=== PATIENT | female | born 1995 | race Two or more races ===

== ENCOUNTER 2016-10-19 21:53 | Emergency (ER) | payer OTHER, SELFPAY ==
[~2016-10-19] VITALS: Ht 154.9 cm; Wt 71.7 kg
[~2016-10-19 21:53] MED LIST: PEPCID20 MG PO; REGLAN10 MG PO
[2016-10-19] MEDS ORDERED: AUBRA1 EACH PO (22:00)
[2016-10-19] MEDS ORDERED: Pantoprazole Inj IV ONE (22:15)
[2016-10-19] MEDS ORDERED: Mylanta II UD 30ml ORAL ONE (22:15)
[2016-10-19] MEDS ORDERED: Lidocaine 2% Visc 15ml soln ORAL ONE (22:15)
[2016-10-19] MEDS ORDERED: Morphine Sulfate 4mg/ml Inj IVP ONE (22:15)
--- NOTE | 2016-10-19 22:16 | Emergency Room Report ---
History of Present Illness General Chief Complaint: Abdominal Pain Source: Patient Present Illness HPI Is a 21-year-old female with no significant past medical history. She's been diagnosed with peptic ulcer disease in the past. Not on medication however. She presents with chief complaint of epigastric pain that goes to her back. Now and burning incision. 12/29. Occurred about an hour half ago. No relief with [place] and milk. She was scheduled for an endoscopy and colonoscopy but that had to be canceled because she was . She terminated the on October 10. A week later she had some lower caught her and pain and went to an ER. Urine was still positive. Ultrasound however was negative for IUP but only for a cyst. Patient denies any other complaint. Worse with eating and drinking. Allergies: Coded Allergies: No Known Allergies (Unverified , 10/19/16) Patient History Past Medical History: see triage record, old chart reviewed Past Surgical History: other Pertinent Family History: none Social History: Denies: smoking Last Menstrual Period: august 05 Now: No Immunizations: other Reviewed Nursing Documentation: PMH: Agreed, PSxH: Agreed Nursing Documentation-PMH Past Medical History: No History, Except For Hx Gastrointestinal Problems: Yes Review of Systems Eye: Denies: blurred vision, eye pain ENT: Denies: ear pain, nose congestion, throat swelling Respiratory: Denies: cough, shortness of breath Cardiovascular: Denies: chest pain, palpitations Gastrointestinal: Reports: abdominal pain, Denies: diarrhea, nausea, vomiting Musculoskeletal: Denies: back pain, joint pain Skin: Denies: rash Neurological: Denies: headache, numbness Endocrine: Denies: increased thirst, increased urine Hematologic/Lymphatic: Denies: easy bruising All Other Systems: negative except mentioned in HPI Physical Exam Vital Signs Date Time Temp Pulse Resp B/P Pulse Ox O2 Delivery O2 Flow Rate FiO2 10/19/16 21:55 97.5 86 16 133/63 97 Room Air vitals normal Sp02 EP Interpretation: reviewed, normal General Appearance: well appearing, no apparent distress, alert Head: normocephalic, atraumatic Eyes: bilateral eye EOMI, bilateral eye PERRL ENT: hearing grossly normal, normal pharynx Neck: full range of motion, supple, no meningismus Respiratory: chest non-tender, lungs clear, normal breath sounds Cardiovascular #1: regular rate, rhythm, no murmur Gastrointestinal: normal bowel sounds, no mass, no organomegaly, no bruit, non- distended, rebound - Epigastric tenderness Musculoskeletal: back normal, gait/station normal, normal range of motion Psychiatric: mood/affect normal Skin: warm/dry Medical Decision Making Diagnostic Impression: Primary Impression: Abdominal pain Qualified Codes: R10.13 - Epigastric pain Additional Impression: Retained products of conception following ER Course Present with epigastric pain. Most likely peptic ulcer disease. I bedside ultrasound negative for gallstone. She has no Sanchez sign. I see level is still positive an ultrasound showed a small retained product of conception. She has no severe bleeding or fever. Notice of infection. She may need another D&C if symptoms continue at this. This can be done as an outpatient. She's otherwise stable. Lab Results Impression labs unremarkable CT/MRI/US Diagnostic Results CT/MRI/US Diagnostic Results : Imaging Test Ordered: Pelvic ultrasound Impression Read by instrumentation engineer. Ovarian cyst. Small retained product of conception Last Vital Signs Date Time Temp Pulse Resp B/P Pulse Ox O2 Delivery O2 Flow Rate FiO2 10/19/16 21:55 97.5 86 16 133/63 97 Room Air Status: improved Disposition: HOME, SELF-CARE Condition: Stable Scripts Hydrocodone/Acetaminophen 5-325* (HYDROCODONE/ACETAMINOPHEN 5-325*) 1 Each Tablet 1 TAB ORAL Q6H Y for For Pain, #20 TAB 0 Refills Prov: JIM BRUNSON M.D. 10/20/16 Omeprazole Magnesium (PRILOSEC OTC) 20 Mg Tablet. 20 MG ORAL DAILY, #30 TAB Prov: JIM BRUNSON M.D. 10/20/16 Additional Instructions: Followup with your DrAnuradha in 7 days. Call [facility] regarding retained products of conception. Return if symptom worsen. JIM BRUNSON M.D. October 19, 2016 22:16
[2016-10-19 22:20] VITALS: BP 113/67
[2016-10-19 22:31] LABS: APPEARANCE,URINE CLEAR; KETONES,URINE NEGATIVE (NEGATIVE); LEUKOCYTE ESTERASE ,URINE 2+ (NEGATIVE); NITRITE,URINE NEGATIVE (NEGATIVE); PH,URINE 7 (4.5-8.0); PROTEIN,URINE NEGATIVE (NEGATIVE); UROBILINOGEN,URINE NORMAL MG/DL (0.0-1.0)
[2016-10-19 22:31] LABS: BASOPHILS % (AUTO) 0.3 % (0.0-2.0); EOSINOPHILS % (AUTO) 0.6 % (0.0-3.0); LYMPHOCYTES % (AUTO) 39.8 % (20.0-45.0); MEAN CORPUSCULAR HEMOGLOBIN 29.4 PG (27.0-31.0); MEAN CORPUSCULAR HGB CONC 35.4 G/DL (32.0-36.0); MEAN CORPUSCULAR VOLUME 83 FL (80-99); MEAN PLATELET VOLUME 11.1 FL (6.5-10.1); MONOCYTES % (AUTO) 4.9 % (1.0-10.0); NEUTROPHILS % (AUTO) 54.3 % (45.0-75.0); PLATELET COUNT 172 K/UL (150-450); RED CELL DISTRIBUTION WIDTH 12.1 % (11.6-14.8); WHITE BLOOD COUNT 6.2 K/UL (4.8-10.8)
[2016-10-19 22:48] LABS: ALANINE AMINOTRANSFERASE 36 U/L (3-33); ALBUMIN/GLOBULIN RATIO 1.3 (1.0-2.7); ANION GAP 17 (5-15); ASPARTATE AMINO TRANSFERASE 59 U/L (5-40); CALCIUM 9.6 mg/dL (8.6-10.2); CARBON DIOXIDE 22 mEQ/L (20-30); CHLORIDE 102 mEQ/L (98-107); CREATININE 0.9 mg/dL (0.5-0.9); GLOMERULAR FILTRATION RATE > 60 mL/min (>60); HEMOLYSIS 5; LIPASE 33 U/L (< 60); POTASSIUM 3.8 mEQ/L (3.4-4.9); SODIUM 141 mEQ/L (135-145); TOTAL PROTEIN 7.4 g/dL (6.6-8.7)
[2016-10-19 22:52] LABS: BACTERIA,URINE FEW /HPF; SQUAMOUS EPITHELIAL CELL,UR FEW /LPF (NONE/OCC)
[2016-10-20 00:20] VITALS: BP 118/64
[2016-10-20] MEDS ORDERED: HYDROCODON-ACE1 EA15 ORAL (00:45)
[2016-10-20] MEDS ORDERED: PRILOSEC OTC20 MG ORAL (00:45)
[2016-10-20 00:56] VITALS: BP 118/64
--- NOTE | 2016-10-20 16:30 | Diagnostic Imaging Report ---
Indication: Pelvic pain recent therapeutic Technique: Transabdominal and transvaginal images Comparison: None Findings: Uterus measures 7.3 cm length by 5.4 cm AP. 8 x 8 x 2 fluid collection is seen in the lower endometrium. Small amount of fluid is seen within the upper endometrium. The endometrium is not thickened. The right ovary measures 2.5 cm length. The left ovary measures 2.7 cm in length. No adnexal mass. No free cul-de-sac fluid. Impression: One or 2 small cystic spaces within the lower endometrium, nonspecific. Negative for adnexal mass
== END 2016-10-20 00:56 | disposition home or self-care (01) ==
LOC: EMR 22:08
DX: R10.13 Epigastric pain (principal); O03.4 Incomplete spontaneous abortion without complication; Z87.11 Personal history of peptic ulcer disease
CPT/HCPCS: 36415; 76830; 76856; 80053; 81003; 81025; 83690; 84702; 85025; 96360; 96361; 96374; 96375; 99284; C9113; J2270; J2405

== ENCOUNTER 2016-11-07 10:59 | Emergency (ER) | payer OTHER ==
[~2016-11-07] VITALS: Ht 154.9 cm; Wt 71.7 kg
[~2016-11-07 10:59] MED LIST changes: +AUBRA1 EACH PO; +HYDROCODON-ACE1 EA15 ORAL; +PRILOSEC OTC20 MG ORAL
[2016-11-07 11:13] VITALS: BP 121/83
[2016-11-07] MEDS ORDERED: Famotidine 20 MG/ 2ML VIAL IVP ONE (11:45)
[2016-11-07 12:00] LABS: BASOPHILS % (AUTO) 0.4 % (0.0-2.0); EOSINOPHILS % (AUTO) 0.4 % (0.0-3.0); LYMPHOCYTES % (AUTO) 27.6 % (20.0-45.0); MEAN CORPUSCULAR HEMOGLOBIN 27.5 PG (27.0-31.0); MEAN CORPUSCULAR HGB CONC 32.4 G/DL (32.0-36.0); MEAN CORPUSCULAR VOLUME 85 FL (80-99); MEAN PLATELET VOLUME 11.2 FL (6.5-10.1); MONOCYTES % (AUTO) 4.8 % (1.0-10.0); NEUTROPHILS % (AUTO) 66.7 % (45.0-75.0); PLATELET COUNT 146 K/UL (150-450); RED BLOOD COUNT 4.16 M/UL (4.20-5.40); RED CELL DISTRIBUTION WIDTH 12.3 % (11.6-14.8); WHITE BLOOD COUNT 5.6 K/UL (4.8-10.8)
[2016-11-07 12:09] LABS: APPEARANCE,URINE CLEAR; KETONES,URINE NEGATIVE (NEGATIVE); LEUKOCYTE ESTERASE ,URINE 1+ (NEGATIVE); NITRITE,URINE NEGATIVE (NEGATIVE); PH,URINE 7 (4.5-8.0); PROTEIN,URINE NEGATIVE (NEGATIVE); UROBILINOGEN,URINE NORMAL MG/DL (0.0-1.0)
[2016-11-07 12:15] LABS: ALANINE AMINOTRANSFERASE 6 U/L (3-33); ALBUMIN/GLOBULIN RATIO 1.3 (1.0-2.7); ANION GAP 16 (5-15); ASPARTATE AMINO TRANSFERASE 14 U/L (5-40); CARBON DIOXIDE 21 mEQ/L (20-30); CHLORIDE 101 mEQ/L (98-107); CREATININE 0.7 mg/dL (0.5-0.9); GLOMERULAR FILTRATION RATE > 60 mL/min (>60); HEMOLYSIS 4; LIPASE 22 U/L (< 60); POTASSIUM 4.1 mEQ/L (3.4-4.9); SODIUM 138 mEQ/L (135-145); TOTAL PROTEIN 6.9 g/dL (6.6-8.7)
[2016-11-07 12:16] LABS: BACTERIA,URINE FEW /HPF; SQUAMOUS EPITHELIAL CELL,UR FEW /LPF (NONE/OCC)
[2016-11-07] MEDS ORDERED: Morphine Sulfate 4mg/ml Inj ONE (13:24)
[2016-11-07] MEDS ORDERED: Morphine Sulfate 4mg/ml Inj IVP ONE ×2 (13:30→16:15)
[2016-11-07] MEDS ORDERED: Piperacillin/Tazobactam 3.375 GM in NS 110 ML IVPB ONE (14:30)
--- NOTE | 2016-11-07 14:46 | Diagnostic Imaging Report ---
Indications: Epigastric and right upper quadrant abdominal pain Technique: Transabdominal real-time grayscale and duplex Doppler imaging of the upper abdomen and retroperitoneum was performed. Findings: Comparison: None. Liver normal size and surface contour, parenchymal echogenicity. No focal lesions. Gallbladder incompletely filled with heterogeneously echogenic, partially shadowing material. Suggestion of mild diffuse mural thickening/edema to 8 mm. No adjacent fluid identified. Sonographic Sanchez sign reported as positive.. Bile ducts normal caliber. Common bile duct 3 mm. Pancreas visualized portions unremarkable. Spleen unremarkable. Right kidney unremarkable. Left kidney unremarkable. Abdominal aorta, intrahepatic portion of inferior vena cava patent, normal caliber. Duplex Doppler imaging demonstrates antegrade flow in splenic, portal, hepatic veins. No ascites. IMPRESSION: Findings compatible with acute calculous cholecystitis, gallbladder lumen diffusely stone-and sludge-filled. Remainder of exam unremarkable Critical results discussed with Dr. Dawkins, ER physician, by telephone at time of this dictation
[2016-11-07] MEDS ORDERED: Zosyn 3.375gm inj ONE (14:49)
--- NOTE | 2016-11-07 16:05 | Emergency Room Report ---
History of Present Illness General Chief Complaint: Abdominal Pain Source: Patient Present Illness HPI 21-year-old female presents to ED complaining of abdominal pain times one day. Pain is epigastric, sharp, 9/10, nonradiating. Denies nausea or vomiting. Denies fevers or chills. Patient was told she has history of ulcers has been here in the past. Patient states she was not too long ago but not at this time. Patient states she was discharged from here with medications for her ulcers but states it is not helping. No other aggravating or relieving factors. Denies any other associated symptom Allergies: Coded Allergies: No Known Allergies (Unverified , 10/19/16) Patient History Past Medical History: ulcer Past Surgical History: none Pertinent Family History: none Social History: Denies: alcohol use, drug use, smoking Last Menstrual Period: 3-17, d & c done last month Now: No Reviewed Nursing Documentation: PMH: Agreed, PSxH: Agreed Nursing Documentation-PMH Past Medical History: No History, Except For Hx Gastrointestinal Problems: Yes - ulcer Review of Systems All Other Systems: negative except mentioned in HPI Physical Exam Vital Signs Date Time Temp Pulse Resp B/P Pulse Ox O2 Delivery O2 Flow Rate FiO2 11/07/16 11:03 98.4 80 18 121/83 98 Room Air Sp02 EP Interpretation: reviewed, normal General Appearance: no apparent distress, alert, GCS 15, non-toxic Head: normocephalic Eyes: bilateral eye PERRL, bilateral eye normal inspection ENT: normal ENT inspection Neck: normal inspection Respiratory: chest non-tender, lungs clear, normal breath sounds, speaking full sentences Cardiovascular #1: regular rate, rhythm, no edema Gastrointestinal: tenderness - epigastric Rectal: deferred Genitourinary: no CVA tenderness Musculoskeletal: normal inspection Neurologic: alert, oriented x3, responsive, motor strength/tone normal, sensory intact, speech normal Psychiatric: normal inspection Skin: normal inspection Lymphatic: normal inspection Medical Decision Making Diagnostic Impression: Primary Impression: Cholecystitis ER Course Hospital Course 21-year-old F presents to ED with epigastric pain Differential diagnoses include: Appendicitis, cholecystitis, small bowel obstruction Clinical course Patient placed on stretcher. director of user experience. After initial history and physical I ordered labs, IV fluids, UA, pain medication and Abd US Labs - no leukocytosis noted, Hb/Hct stable. electrolytes ok. LFTs ok RUQ US - acute cholecystitis. Antibiotics given. because of insurance patient will be transferred I feel this is a highly complex case requiring extensive working including EKG/ Rhythm strip, Xray/CT/US, Blood/urine lab work, repeat exams while in ED, and administration of strong opiates/narcotics for pain control, admission to hospital or close patient follow up. Diagnosis - cholecystitis transferred in serious condition Labs Test 11/07/16 11:07 11/07/16 11:41 Urine Color Pale yellow Urine Appearance Clear Urine pH 7 (4.5-8.0) Urine Specific [place] 1.010 (1.005-1.035) Urine Protein Negative (NEGATIVE) Urine Glucose (UA) Negative (NEGATIVE) Urine Ketones Negative (NEGATIVE) Urine Occult Blood 2+ (NEGATIVE) Urine Nitrite Negative (NEGATIVE) Urine Bilirubin Negative (NEGATIVE) Urine Urobilinogen Normal MG/DL (0.0-1.0) Urine Leukocyte Esterase 1+ (NEGATIVE) Urine RBC 2-4 /HPF (0 - 2) Urine WBC 2-4 /HPF (0 - 2) Urine Squamous Epithelial Cells Few /LPF (NONE/OCC) Urine Bacteria Few /HPF (NONE) Urine HCG, Qualitative Negative White Blood Count 5.6 K/UL (4.8-10.8) Red Blood Count 4.16 M/UL (4.20-5.40) Hemoglobin 11.5 G/DL (12.0-16.0) Hematocrit 35.3 % (37.0-47.0) Mean Corpuscular Volume 85 FL (80-99) Mean Corpuscular Hemoglobin 27.5 PG (27.0-31.0) Mean Corpuscular Hemoglobin Concent 32.4 G/DL (32.0-36.0) Red Cell Distribution Width 12.3 % (11.6-14.8) Platelet Count 146 K/UL (150-450) Mean Platelet Volume 11.2 FL (6.5-10.1) Neutrophils (%) (Auto) 66.7 % (45.0-75.0) Lymphocytes (%) (Auto) 27.6 % (20.0-45.0) Monocytes (%) (Auto) 4.8 % (1.0-10.0) Eosinophils (%) (Auto) 0.4 % (0.0-3.0) Basophils (%) (Auto) 0.4 % (0.0-2.0) Sodium Level 138 mEQ/L (135-145) Potassium Level 4.1 mEQ/L (3.4-4.9) Chloride Level 101 mEQ/L (98-107) Carbon Dioxide Level 21 mEQ/L (20-30) Anion Gap 16 (5-15) Blood Urea Nitrogen 7 mg/dL (7-23) Creatinine 0.7 mg/dL (0.5-0.9) Estimat Glomerular Filtration Rate > 60 mL/min (>60) Glucose Level 85 mg/dL (74-106) Calcium Level 9.0 mg/dL (8.6-10.2) Total Bilirubin 0.3 mg/dL (0.0-1.2) Aspartate Amino Transf (AST/SGOT) 14 U/L (5-40) Alanine Aminotransferase (ALT/SGPT) 6 U/L (3-33) Alkaline Phosphatase 71 U/L (35-104) Total Protein 6.9 g/dL (6.6-8.7) Albumin 3.9 g/dL (3.5-5.2) Globulin 3.0 g/dL Albumin/Globulin Ratio 1.3 (1.0-2.7) Lipase 22 U/L (< 60) Human Chorionic Gonadotropin, Quant 8 mIU/mL CT/MRI/US Diagnostic Results CT/MRI/US Diagnostic Results : Imaging Test Ordered: Abd US Impression cholecystitis Last Vital Signs Date Time Temp Pulse Resp B/P Pulse Ox O2 Delivery O2 Flow Rate FiO2 11/07/16 11:13 98.4 18 121/83 98 Room Air 11/07/16 11:03 80 Status: improved Disposition: XFER T-[facility] Condition: Serious Referrals: [facility],REFERRING (PCP) TAN COLMENARES M.D. Nov 07, 2016 16:05
[2016-11-07] MEDS ORDERED: Ketorolac 30mg Inj IV ONE (16:15)
[2016-11-07 17:06] VITALS: BP 114/70
[2016-11-07 18:36] VITALS: BP 114/70
--- NOTE | 2016-11-08 | Consultation ---
DATE OF CONSULTATION: 11/07/2016 CONSULTING PHYSICIAN: Jeremiah Rush M.D. The patient is seen in the ER at the request of ER physician as well as insurance. HISTORY OF PRESENT ILLNESS: The patient is a 21-year-old female with history of abdominal pain. She came to the hospital with abdominal pain which is severe. There is no nausea or vomiting. She has been told that she had abscess in the past. PAST MEDICAL HISTORY: Otherwise unremarkable. PAST SURGICAL HISTORY: None SOCIAL HISTORY: There is no significant history of alcohol or tobacco usage. REVIEW OF SYSTEMS: Noncontributory . PHYSICAL EXAMINATION: GENERAL: Reveals a young female. HEENT: Unremarkable. CHEST: Shows clear breath sounds bilaterally. ABDOMEN: Soft. EXTREMITIES: There is no edema. NEUROLOGIC: Nonfocal. MUSCULOSKELETAL: There is moderate back discomfort. LABORATORY AND DIAGNOSTIC DATA: Normal CBC except for white count 11.5. Chemistry is normal. Urinalysis is negative. Imaging studies obtained today shows evidence of acute cholecystitis. IMPRESSION: Acute cholecystitis. DISCUSSION: The patient is stable for transfer to contracted hospital. I have contacted on-call patient case coordinator and I have discuss the care with them. The patient will be transferred to [facility]. Jeremiah Rush M.D. DR: Xiomara JOB#: [id number] CC:
== END 2016-11-07 18:36 | disposition short-term general hospital (02) ==
LOC: EMR 11:40
DX: K81.9 Cholecystitis, unspecified (principal); Z87.11 Personal history of peptic ulcer disease
CPT/HCPCS: 36415; 76700; 80053; 81003; 81025; 83690; 84702; 85025; 96360; 96374; 96375; 99285; J1885; J2270; J2405; J2543; S0028

== ENCOUNTER 2017-02-18 14:06 | Emergency (ER) | payer MEDICAID, OTHER ==
[~2017-02-18] VITALS: Ht 154.9 cm; Wt 65.3 kg
[~2017-02-18 14:06] MED LIST changes: +BACTRIM DS TAB1 EAC1 ORAL; +IBUPROFEN600 MG ORAL
[2017-02-18] MEDS ORDERED: LORATADINE10 M2 PO (14:44)
[2017-02-18] MEDS ORDERED: AUGMENTIN 875-1 EAC1 ORAL (14:44)
[2017-02-18] MEDS ORDERED: DEBROX15 M1 RIGHT EAR (14:44)
--- NOTE | 2017-02-18 14:44 | Emergency Room Report ---
History of Present Illness General Chief Complaint: Earache Source: Patient Present Illness HPI 21 y/o 5 week gestation female c/o bilateral ear pain x 1 week. States left ear pain and pressure for 1 week with radiation to post auricular region. No modifying factors and denies taking medications due to . States over past 2 days has had decreased hearing in right ear as well. Denies any current n/v/f/c/d, sore throat, sinus pain / pressure, allergies, abd pain, back pain, neck pain, photophobia, phonophobia, CP, SOB or headache. Allergies: Coded Allergies: No Known Allergies (Unverified , 10/19/16) Patient History Last Menstrual Period: 01/08/17 Now: Yes : 4 Para: 1 Immunizations: UTD Reviewed Nursing Documentation: PMH: Agreed, PSxH: Agreed Nursing Documentation-PMH Past Medical History: No History, Except For Hx Gastrointestinal Problems: Yes - peptic ulcer ; cholecystectomy in 2017 Review of Systems All Other Systems: negative except mentioned in HPI Physical Exam Vital Signs Date Time Temp Pulse Resp B/P (MAP) Pulse Ox O2 Delivery O2 Flow Rate FiO2 02/18/17 14:12 97.5 81 16 115/70 100 Room Air Sp02 EP Interpretation: reviewed, normal General Appearance: no apparent distress, alert, GCS 15, non-toxic Head: normocephalic, atraumatic Eyes: bilateral eye normal inspection ENT: hearing grossly normal, normal pharynx, no angioedema, normal voice, other - Left TM red, bulging with mucous effusion, right TM with impacted cerumen. Neck: full range of motion, supple/symm/no masses Respiratory: chest non-tender, lungs clear, normal breath sounds, speaking full sentences Cardiovascular #1: regular rate, rhythm, no edema Musculoskeletal: gait/station normal Neurologic: alert, oriented x3, responsive, motor strength/tone normal, sensory intact, speech normal Psychiatric: judgement/insight normal, memory normal, mood/affect normal, no suicidal/homicidal ideation Skin: normal color, no rash, warm/dry, well hydrated Lymphatic: no adenopathy Medical Decision Making PA Attestation Dr. Angulo is my supervising physician with whom patient management has been discussed with. Diagnostic Impression: Primary Impression: Otitis media of left ear Qualified Codes: H65.112 - Acute and subacute allergic otitis media (mucoid) ( sanguinous) (serous), left ear Additional Impressions: Less than 8 weeks gestation of Impacted cerumen of right ear ER Course Pt. presents to the ED c/o ear pain Ddx considered but are not limited to AOM, AOE, Coleman lucas, Sinusitis, Eustachian tube dysfunction, TM Perf, Mastoiditis Vital signs: are WNL, pt. is afebrile H&PE are most consistent with AOM left ear with impacted cerumen right ear ORDERS: none required at this time, the diagnosis is clinical ED INTERVENTIONS: none required at this time. DISCHARGE: At this time pt. is stable for d/c to home. Will provide printed patient care instructions, and any necessary prescriptions. Care plan and follow up instructions have been discussed with the patient prior to discharge. Last Vital Signs Date Time Temp Pulse Resp B/P (MAP) Pulse Ox O2 Delivery O2 Flow Rate FiO2 02/18/17 14:12 97.5 81 16 115/70 100 Room Air Status: unchanged Disposition: HOME, SELF-CARE Condition: Stable Scripts Carbamide Peroxide (DEBROX) 15 Ml Drops 10 DROP RIGHT EAR TWICE A DAY for 4 Days, ML 0 Refills Prov: ASHLEY LUCIANO.AAnuradha 02/18/17 Loratadine (LORATADINE) 10 Mg Tablet 10 MG PO DAILY for 14 Days, #14 TAB Prov: ASHLEY LUCIANO.A. 02/18/17 Amoxicillin/Potassium Clav 875-125* (AUGMENTIN 875-125 TABLET*) 1 Each Tablet 1 TAB ORAL TWICE A DAY for 10 Days, #20 TAB Prov: ASHLEY LUCIANO.A. 02/18/17 Patient Instructions: Otitis Media, Adult, [id number] ASHLEY LUCIANO Feb 18, 2017 14:44
[2017-02-18 15:09] VITALS: BP 118/64
[2017-02-18 15:10] VITALS: BP 118/64
== END 2017-02-18 15:13 | disposition home or self-care (01) ==
LOC: EMR 14:47
DX: O26.891 Other specified pregnancy related conditions, first trimester (principal); H66.92 Otitis media, unspecified, left ear; H61.21 Impacted cerumen, right ear; Z3A.01 Less than 8 weeks gestation of pregnancy
CPT/HCPCS: 99284

== ENCOUNTER 2017-02-22 12:35 | Emergency (ER) | payer MEDICAID, OTHER ==
[~2017-02-22] VITALS: Ht 154.9 cm; Wt 65.3 kg
[~2017-02-22 12:35] MED LIST changes: +AUGMENTIN 875-1 EAC1 ORAL; +DEBROX15 M1 RIGHT EAR; +LORATADINE10 M2 PO
[2017-02-22 14:11] VITALS: BP 95/53
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
[2017-02-22] MEDS ORDERED: LIDODERM700 M1 TOPIC (14:37)
[2017-02-22] MEDS ORDERED: TYLENOL EXTRA500 MG ORAL (14:37)
[2017-02-22 14:49] VITALS: BP 95/53
--- NOTE | 2017-02-22 14:51 | Diagnostic Imaging Report ---
Indication:Lower abdominal pelvic pain. Technique: Grayscale and duplex Doppler imaging of the pelvis performed utilizing a transabdominal scan and endovaginal scan. Comparison: None Findings: Exam shows evidence of an intrauterine with gestational sac and yolk sac. pole not seen. By mean sac diameter gestational age estimated at 4 weeks 4 days. A normal early intrauterine is still possible as the pole is usually visible by 5 weeks. Other possibility is an incomplete spontaneous . Suggest repeat ultrasound and serial quantitative beta-hCG correlation to assess doubling time. There is a 1.2 cm hypoechoic lesion in the right ovary likely a hemorrhagic cyst. Recommend followup. Otherwise, the ovaries appear normal bilaterally. Right ovary 2.7 x 3.4 x 3.2 CM. Left ovary 2.4 x 2.2 x 1.2 CM. Impression: Evidence of viability indeterminate early intrauterine versus spontaneous . Followup quantitative beta-hCG and ultrasound suggested. Hemorrhagic right ovarian cyst. Followup also recommended.
== END 2017-02-22 14:51 | disposition home or self-care (01) ==
LOC: EMR 13:00
DX: O26.891 Other specified pregnancy related conditions, first trimester (principal); M54.5 Low back pain; Y92.410 Unspecified street and highway as the place of occurrence of the external cause; V43.52XA Car driver injured in collision with other type car in traffic accident, initial encounter; O20.0 Threatened abortion; Z3A.01 Less than 8 weeks gestation of pregnancy
CPT/HCPCS: 36415; 76801; 76830; 81025; 84702; 99283

== ENCOUNTER 2017-05-24 20:58 | Emergency (ER) | payer MEDICAID ==
[~2017-05-24] VITALS: Ht 154.9 cm; Wt 61.7 kg
[~2017-05-24 20:58] MED LIST changes: +LIDODERM700 M1 TOPIC; +TYLENOL EXTRA500 MG ORAL
[2017-05-24] MEDS ORDERED: Acetaminophen 500mg (ES) tab ORAL ONE (22:15)
[2017-05-24 22:48] LABS: APPEARANCE,URINE CLEAR; BILIRUBIN, URINE NEGATIVE (NEGATIVE); GLUCOSE, URINE (UA) NEGATIVE (NEGATIVE); KETONES,URINE 1+ (NEGATIVE); LEUKOCYTE ESTERASE ,URINE 2+ (NEGATIVE); NITRITE,URINE NEGATIVE (NEGATIVE); PH,URINE 6 (4.5-8.0); PROTEIN,URINE NEGATIVE (NEGATIVE); UROBILINOGEN,URINE NORMAL MG/DL (0.0-1.0)
[2017-05-24 22:49] LABS: COLOR,URINE YELLOW
[2017-05-24] MEDS ORDERED: NITROFURANTOIN100 M2 ORAL (23:15)
--- NOTE | 2017-05-24 23:15 | Emergency Room Report ---
History of Present Illness General Chief Complaint: Back Pain-No Injury Source: Patient Present Illness HPI This is a 21-year-old female who is 4 para 1, A2, approximately 7 weeks . She presents with right lower quadrant pain. His been ongoing for last couple days. Hurts when she urinate. No fever or chills. No nausea no vomiting. No loss of appetite. Allergies: Coded Allergies: No Known Allergies (Unverified , 10/19/16) Patient History Past Medical History: see triage record, old chart reviewed Past Surgical History: none Pertinent Family History: none Social History: Denies: smoking Last Menstrual Period: Dec Now: Yes Immunizations: other Reviewed Nursing Documentation: PMH: Agreed, PSxH: Agreed Nursing Documentation-PMH Hx Gastrointestinal Problems: Yes - peptic ulcer ; cholecystectomy in 2017 Review of Systems Eye: Denies: eye pain, blurred vision ENT: Denies: ear pain, nose congestion, throat swelling Respiratory: Denies: cough, shortness of breath Cardiovascular: Denies: chest pain, palpitations Gastrointestinal: Denies: abdominal pain, diarrhea, nausea, vomiting Genitourinary: Reports: dysuria Musculoskeletal: Denies: back pain, joint pain Skin: Denies: rash Neurological: Denies: headache, numbness Endocrine: Denies: increased thirst, increased urine Hematologic/Lymphatic: Denies: easy bruising All Other Systems: negative except mentioned in HPI Physical Exam Vital Signs Date Time Temp Pulse Resp B/P (MAP) Pulse Ox O2 Delivery O2 Flow Rate FiO2 05/24/17 21:08 98.2 70 16 109/66 100 Room Air vitals normal Sp02 EP Interpretation: reviewed, normal General Appearance: well appearing, no apparent distress, alert Head: normocephalic, atraumatic Eyes: bilateral eye PERRL, bilateral eye EOMI ENT: hearing grossly normal, normal pharynx Neck: full range of motion, supple, no meningismus Respiratory: chest non-tender, lungs clear, normal breath sounds Cardiovascular #1: regular rate, rhythm, no murmur Gastrointestinal: normal bowel sounds, non tender, no mass, no organomegaly, no bruit, non-distended Musculoskeletal: back normal, gait/station normal, normal range of motion Psychiatric: mood/affect normal Skin: warm/dry Medical Decision Making Diagnostic Impression: Primary Impression: UTI (urinary tract infection) Qualified Codes: N30.00 - Acute cystitis without hematuria Additional Impression: Second trimester ER Course Patient presents with right flank/lower quadrant pain. Clinically doubt appendicitis. May be round ligament. May be a mild urinary tract infection. We'll go and put on antibiotics. My bedside ultrasound showed a live active IUP with good movement. Last Vital Signs Date Time Temp Pulse Resp B/P (MAP) Pulse Ox O2 Delivery O2 Flow Rate FiO2 05/24/17 21:08 98.2 70 16 109/66 100 Room Air Status: improved Disposition: HOME, SELF-CARE Condition: Stable Scripts Nitrofurantoin Monohyd/M-Cryst* (MACROBID 100 MG*) 100 Mg Capsule 100 MG ORAL EVERY 12 HOURS, #14 CAP Prov: JIM BRUNSON M.D. 05/24/17 Additional Instructions: Followup your Dr. in 3-7 days. Keep your appointment with the OB. Return worse. JIM BRUNSON M.D. May 24, 2017 23:15
[2017-05-24 23:48] VITALS: BP 121/82
[2017-05-24 23:49] VITALS: BP 109/66
== END 2017-05-24 23:50 | disposition home or self-care (01) ==
LOC: EMR 23:48
DX: O23.41 Unspecified infection of urinary tract in pregnancy, first trimester (principal); Z3A.01 Less than 8 weeks gestation of pregnancy
CPT/HCPCS: 81003; 99283

== ENCOUNTER 2017-11-01 03:39 | Emergency (ER) | payer MEDICAID ==
[~2017-11-01] VITALS: Ht 154.9 cm; Wt 75.3 kg
[~2017-11-01 03:39] MED LIST changes: +NITROFURANTOIN100 M2 ORAL
[2017-11-01 04:22] LABS: BILIRUBIN, URINE NEGATIVE (NEGATIVE); COLOR,URINE PALE YELLOW; GLUCOSE, URINE (UA) NEGATIVE (NEGATIVE); KETONES,URINE NEGATIVE (NEGATIVE); LEUKOCYTE ESTERASE ,URINE 3+ (NEGATIVE); NITRITE,URINE NEGATIVE (NEGATIVE); PH,URINE 7 (4.5-8.0); PROTEIN,URINE 2+ (NEGATIVE); UROBILINOGEN,URINE NORMAL MG/DL (0.0-1.0)
[2017-11-01 04:31] LABS: APPEARANCE,URINE CLOUDY
[2017-11-01 04:53] LABS: ANION GAP 8 mmol/L (5-15); BASOPHILS % (AUTO) 0.7 % (0.0-2.0); BLOOD UREA NITROGEN 10 mg/dL (7-18); CALCIUM 8.9 MG/DL (8.5-10.1); CARBON DIOXIDE 25 MMOL/L (21-32); CHLORIDE 107 MMOL/L (98-107); CREATININE 0.8 MG/DL (0.55-1.30); EOSINOPHILS % (AUTO) 3.4 % (0.0-3.0); HEMATOCRIT 37.8 % (37.0-47.0); HEMOGLOBIN 12.4 G/DL (12.0-16.0); LYMPHOCYTES % (AUTO) 23.7 % (20.0-45.0); MEAN CORPUSCULAR VOLUME 87 FL (80-99); MONOCYTES % (AUTO) 6.2 % (1.0-10.0); PLATELET COUNT 224 K/UL (150-450); POTASSIUM 3.6 MMOL/L (3.5-5.1); RED BLOOD COUNT 4.35 M/UL (4.20-5.40); RED CELL DISTRIBUTION WIDTH 13.3 % (11.6-14.8); SODIUM 140 MMOL/L (136-145); WHITE BLOOD COUNT 8.3 K/UL (4.8-10.8)
[2017-11-01 04:57] LABS: ALANINE AMINOTRANSFERASE 34 U/L (12-78); ALBUMIN 2.7 G/DL (3.4-5.0); ALBUMIN/GLOBULIN RATIO 0.6 (1.0-2.7); ALKALINE PHOSPHATASE 140 U/L (46-116); ASPARTATE AMINO TRANSFERASE 30 U/L (15-37); BILIRUBIN,TOTAL 0.3 MG/DL (0.2-1.0)
[2017-11-01 05:00] VITALS: BP 125/85
[2017-11-01] MEDS ORDERED: TYLENOL EXTRA500 MG ORAL (05:47)
[2017-11-01 05:57] VITALS: BP 125/85
--- NOTE | 2017-11-01 10:52 | Diagnostic Imaging Report ---
Indication: Abdominal pain, recent delivery Technique: Transabdominal and transvaginal images Comparison: 10/19/2016 Findings: Uterus measures 12.4 cm in length by 9 cm AP. Endometrium measures 7 mm thick. Trace fluid is seen within the endometrium. No myometrial abnormality. Left ovary measures 5.3 cm length. Right ovary could not be demonstrated. No free cul-de-sac fluid Impression: Enlarged uterus Trace fluid in the endometrium, nonspecific. No definite evidence of retained products of conception Nonvisualized right ovary. No gross adnexal mass
--- NOTE | 2017-11-02 07:29 | Emergency Room Report ---
History of Present Illness General Chief Complaint: Abdominal Pain Source: Patient Present Illness HPI 22-year-old female presents to the ED complaining of lower abdominal pain. States it started approximately one hour ago. Localized to right inguinal area. Sharp, 9 out of 10, nonradiating. States she she is approximately 6 days . Had normal vaginal delivery. No complications during . Delivered at [facility]. Patient states she had similar pain in her . Her PMD states it was "round ligament pain". Denies fevers or chills. Denies nausea or vomiting. Denies any vaginal bleeding or discharge. No other aggravating or relieving factors. Denies any other associated symptoms Allergies: Coded Allergies: No Known Allergies (Unverified , 10/19/16) Patient History Past Medical History: GERD Past Surgical History: Pertinent Family History: none Social History: Denies: smoking, alcohol use, drug use Last Menstrual Period: 6 days post Now: No Immunizations: UTD Reviewed Nursing Documentation: PMH: Agreed; PSxH: Agreed Nursing Documentation-PMH Hx Gastrointestinal Problems: Yes - peptic ulcer ; cholecystectomy in 2017 Review of Systems All Other Systems: negative except mentioned in HPI Physical Exam Vital Signs Date Time Temp Pulse Resp B/P (MAP) Pulse Ox O2 Delivery O2 Flow Rate FiO2 11/01/17 03:41 98.5 75 18 120/81 95 Room Air 98.4 Sp02 EP Interpretation: reviewed, normal General Appearance: no apparent distress, alert, GCS 15, non-toxic Head: normocephalic, atraumatic Eyes: bilateral eye normal inspection, bilateral eye PERRL ENT: hearing grossly normal, normal pharynx, no angioedema, normal voice Neck: full range of motion, supple/symm/no masses Respiratory: chest non-tender, lungs clear, normal breath sounds, speaking full sentences Cardiovascular #1: regular rate, rhythm, no edema Cardiovascular #2: 2+ carotid (R), 2+ carotid (L), 2+ radial (R), 2+ radial (L) , 2+ dorsalis pedis (R), 2+ dorsalis pedis (L) Gastrointestinal: normal bowel sounds, soft, non-distended, no guarding, no rebound, tenderness - suprapubic Rectal: deferred Genitourinary: normal inspection, no CVA tenderness Musculoskeletal: back normal, gait/station normal, normal range of motion, non- tender Neurologic: alert, oriented x3, responsive, motor strength/tone normal, sensory intact, speech normal Psychiatric: judgement/insight normal, memory normal, mood/affect normal, no suicidal/homicidal ideation Reflexes: 3+ bicep (R), 3+ bicep (L), 3+ tricep (R), 3+ tricep (L), 3+ knee (R) , 3+ knee (L) Skin: normal color, no rash, warm/dry, well hydrated Lymphatic: no adenopathy Medical Decision Making Diagnostic Impression: Primary Impression: Pelvic pain ER Course Hospital Course 22-year-old F presents to ED with lower abd pain. s/p vaginal delivery 6 days ago Differential diagnosis includes-appendicitis, retained products of conception, ovarian cyst Clinical course Patient placed on stretcher. After initial history and physical I ordered labs , IV fluids, pain medications and US Labs - no leukocytosis, electrolytes ok, LFTs normal US shows enlarged uterus, consistent with . No acute process I discussed findings with the patient. My suspicion for appendicitis is low however I did discuss the option of the CT with the patient. Patient states that she would prefer to follow-up with her SPACE TECHNOLOGIST this week. However will return to ED if symptoms recur or worsen I feel this is a highly complex case requiring extensive working including EKG/ Rhythm strip, Xray/CT/US, Blood/urine lab work, repeat exams while in ED, and administration of strong opiates/narcotics for pain control, admission to hospital or close patient follow up. Diagnosis - pelvic pain Stable and discharged to home with Rx Tylenol. Followup with PMD/OBGYN. Return to ED if symptoms recur or worsen Labs Test 11/01/17 04:14 11/01/17 04:20 Urine Color Pale yellow Urine Appearance Cloudy Urine pH 7 (4.5-8.0) Urine Specific [place] 1.015 (1.005-1.035) Urine Protein 2+ (NEGATIVE) Urine Glucose (UA) Negative (NEGATIVE) Urine Ketones Negative (NEGATIVE) Urine Occult Blood 5+ (NEGATIVE) Urine Nitrite Negative (NEGATIVE) Urine Bilirubin Negative (NEGATIVE) Urine Urobilinogen Normal MG/DL (0.0-1.0) Urine Leukocyte Esterase 3+ (NEGATIVE) Urine RBC Tntc /HPF (0 - 2) Urine WBC Tntc /HPF (0 - 2) Urine Squamous Epithelial Cells Few /LPF (NONE/OCC) Urine Bacteria Few /HPF (NONE) White Blood Count 8.3 K/UL (4.8-10.8) Red Blood Count 4.35 M/UL (4.20-5.40) Hemoglobin 12.4 G/DL (12.0-16.0) Hematocrit 37.8 % (37.0-47.0) Mean Corpuscular Volume 87 FL (80-99) Mean Corpuscular Hemoglobin 28.5 PG (27.0-31.0) Mean Corpuscular Hemoglobin Concent 32.9 G/DL (32.0-36.0) Red Cell Distribution Width 13.3 % (11.6-14.8) Platelet Count 224 K/UL (150-450) Mean Platelet Volume 9.5 FL (6.5-10.1) Neutrophils (%) (Auto) 66.0 % (45.0-75.0) Lymphocytes (%) (Auto) 23.7 % (20.0-45.0) Monocytes (%) (Auto) 6.2 % (1.0-10.0) Eosinophils (%) (Auto) 3.4 % (0.0-3.0) Basophils (%) (Auto) 0.7 % (0.0-2.0) Sodium Level 140 MMOL/L (136-145) Potassium Level 3.6 MMOL/L (3.5-5.1) Chloride Level 107 MMOL/L (98-107) Carbon Dioxide Level 25 MMOL/L (21-32) Anion Gap 8 mmol/L (5-15) Blood Urea Nitrogen 10 mg/dL (7-18) Creatinine 0.8 MG/DL (0.55-1.30) Estimat Glomerular Filtration Rate > 60 mL/min (>60) Glucose Level 97 MG/DL (74-106) Calcium Level 8.9 MG/DL (8.5-10.1) Total Bilirubin 0.3 MG/DL (0.2-1.0) Aspartate Amino Transf (AST/SGOT) 30 U/L (15-37) Alanine Aminotransferase (ALT/SGPT) 34 U/L (12-78) Alkaline Phosphatase 140 U/L (46-116) Total Protein 6.9 G/DL (6.4-8.2) Albumin 2.7 G/DL (3.4-5.0) Globulin 4.2 g/dL Albumin/Globulin Ratio 0.6 (1.0-2.7) Lipase 103 U/L (73-393) Human Chorionic Gonadotropin, Quant 75 mIU/mL (1-6) CT/MRI/US Diagnostic Results CT/MRI/US Diagnostic Results : Imaging Test Ordered: Pelvic US Impression Impression: Enlarged uterus Trace fluid in the endometrium, nonspecific. No definite evidence of retained products of conception Nonvisualized right ovary. No gross adnexal mass Last Vital Signs Date Time Temp Pulse Resp B/P (MAP) Pulse Ox O2 Delivery O2 Flow Rate FiO2 11/01/17 05:57 98.5 79 18 125/85 96 Room Air 98.5 Status: improved Disposition: HOME, SELF-CARE Condition: Stable Scripts Acetaminophen* (TYLENOL EXTRA STRENGTH*) 500 Mg Tablet 500 MG ORAL Q8H PRN for Prn Headache/Temp > 101, #30 TAB 0 Refills Prov: Mirza Dawkins MD 11/01/17 Patient Instructions: Care After Vaginal Delivery Mirza Dawkins MD Nov 02, 2017 07:29
== END 2017-11-01 05:57 | disposition home or self-care (01) ==
LOC: EMR 04:11
DX: O90.89 Other complications of the puerperium, not elsewhere classified (principal); R10.2 Pelvic and perineal pain; K21.9 Gastro-esophageal reflux disease without esophagitis; Z87.11 Personal history of peptic ulcer disease; Z90.49 Acquired absence of other specified parts of digestive tract
CPT/HCPCS: 36415; 76830; 76856; 80053; 81003; 83690; 84702; 85025; 87086; 99284

== ENCOUNTER 2017-12-10 16:09 | Emergency (ER) | payer MEDICAID ==
[~2017-12-10] VITALS: Ht 154.9 cm; Wt 66.7 kg
[2017-12-10 16:28] VITALS: BP 106/72
--- NOTE | 2017-12-10 16:42 | Emergency Room Report ---
History of Present Illness General Chief Complaint: Female Urogenital Problems Source: Patient Present Illness HPI 22-year-old female patient presents ER complaining of dysuria for the past few days. Reports that she recently had unprotected sex with a boy that is not her significant other that recently tested positive for chlamydia. Patient denies blood or new vaginal discharge. Denies foul smelling odor. Denies flank pain, vomiting, fever. Reports some suprapubic discomfort during this time. Patient' s boyfriend currently being seen in the ER for evaluation as well, boyfriend asx. Reports she recently gave one month ago. Denies other acute symptoms at this time. Allergies: Coded Allergies: No Known Allergies (Unverified , 10/19/16) Patient History Past Medical History: see triage record Last Menstrual Period: gave 1 month ago Now: No Reviewed Nursing Documentation: PMH: Agreed; PSxH: Agreed Nursing Documentation-PM Past Medical History: No History, Except For Hx Gastrointestinal Problems: Yes - peptic ulcer ; cholecystectomy in 2017 Review of Systems All Other Systems: negative except mentioned in HPI Physical Exam Vital Signs Date Time Temp Pulse Resp B/P (MAP) Pulse Ox O2 Delivery O2 Flow Rate FiO2 12/10/17 16:16 98.3 70 18 106/72 98 Room Air 98.2 Sp02 EP Interpretation: reviewed, normal General Appearance: well appearing, no apparent distress, alert, GCS 15, non- toxic Head: normocephalic, atraumatic Eyes: bilateral eye normal inspection, bilateral eye PERRL ENT: hearing grossly normal, normal pharynx, no angioedema, normal voice, uvula midline, moist mucus membranes Neck: full range of motion Respiratory: lungs clear, normal breath sounds, no rhonchi, no respiratory distress, no accessory muscle use, no wheezing, speaking full sentences Cardiovascular #1: regular rate, rhythm, no edema Gastrointestinal: non tender, soft, no mass, non-distended, no guarding, no rebound, other - negative Rovsing, negative obturator Genitourinary: no CVA tenderness, ext genitalia/vag normal Musculoskeletal: back normal, digits/nails normal, gait/station normal, normal range of motion, non-tender Neurologic: alert, oriented x3, responsive, motor strength/tone normal, sensory intact Skin: no rash - no vesicles, no herpetic lesions no blistering erythema or edema Medical Decision Making PA Attestation Dr. Greenberg is my supervising Physician whom patient management has been discussed with. Diagnostic Impression: Primary Impression: Encounter for screening examination for sexually transmitted disease Additional Impression: Dysuria ER Course Pt presents to ED c/o painful urinary symptoms. DDX considered but are not limited to cystitis, pyelonephritis, STI, vaginitis, , gonorrhea, chlamydia. VITAL SIGNS are WNL, patient is afebrile. Ordered UA, urine , and medications. ER COURSE UA results unremarkable, no nitrites, few bacteria and WBCs, do NOT indicate UTI , does not require will treatment with abx at this time. Urine negative. Informed patient of results. Patient has concern for STI, no provide treatment for STI to cover gonorrhea and chlamydia. Provided with Rocephin and Azithromycin. Followup with STI clinic for testing and treatment. Need evaluation for HIV/AIDs , syphilis, herpes and other STI infections at that time. External vaginal skin visualized with female nurse mattress specialist, no herpetic lesions, no chancre or chancroid or swollen lymph nodes visible. Alert all sexual partners for need for testing. Wear condoms during sex. Avoid sexual activity for the next 2 weeks. Drink plenty of fluids. Patient is resting comfortably in chair, nontoxic appearing, in no acute distress. patient OK for discharge to home. DISCHARGE -Rx provided for Pyridium further dysuria symptoms. Side effects may turn urine orange. Patient is stable for discharge. Patient resting comfortably, in no acute distress, nontoxic appearing, talking without difficulty. Will provide with patient care instructions and any necessary prescriptions. Patient understands and agrees to treatment plan. Patient encouraged to drink plenty of fluids. Patient to take medication as instructed. Care plan and follow-up instructions provided. Patient questions asked and answered. Reports understanding and agreement to treatment plan. Patient instructed to follow-up with primary care provider in 3 - 5 days. ER precautions given. Patient instructed to return to ER immediately for any new or worsening of symptoms. Including but not limited to fever, abdominal pain , intractable vomiting. - Please note that this Emergency Department Report was dictated using [employer] compressor operator technology software, occasionally this can lead to erroneous entry secondary to interpretation by the dictation equipment. Labs Test 12/10/17 16:22 Urine Color Pale yellow Urine Appearance Clear Urine pH 6 (4.5-8.0) Urine Specific [place] 1.010 (1.005-1.035) Urine Protein Negative (NEGATIVE) Urine Glucose (UA) Negative (NEGATIVE) Urine Ketones Negative (NEGATIVE) Urine Occult Blood Negative (NEGATIVE) Urine Nitrite Negative (NEGATIVE) Urine Bilirubin Negative (NEGATIVE) Urine Urobilinogen Normal MG/DL (0.0-1.0) Urine Leukocyte Esterase 2+ (NEGATIVE) Urine RBC 0-2 /HPF (0 - 2) Urine WBC 2-4 /HPF (0 - 2) Urine Squamous Epithelial Cells Few /LPF (NONE/OCC) Urine Bacteria Few /HPF (NONE) Urine HCG, Qualitative Negative (NEGATIVE) Last Vital Signs Date Time Temp Pulse Resp B/P (MAP) Pulse Ox O2 Delivery O2 Flow Rate FiO2 12/10/17 16:28 98.2 18 106/72 98 Room Air 98.2 12/10/17 16:16 70 Disposition: HOME, SELF-CARE Condition: Stable Scripts Phenazopyridine Hcl* (PYRIDIUM*) 100 Mg Tablet 100 MG ORAL THREE TIMES A DAY for 3 Days, #9 TAB Prov: Mathew Haider 12/10/17 [facility]errals: [facility],REFERRING (PCP) Patient Instructions: Dysuria, Sexually Transmitted Disease, [id number] Additional Instructions: Followup with primary care provider and followup with STI clinic for further evaluation and treatment. Needs testing for gonorrhea, chlamydia, HIV, syphilis and others as needed. Alert sexual partners for need for evaluation and treatment. Wear condoms during sex. Avoid sexual activity for 2 weeks. Drink plenty of fluids. Medication as side of turning urine orange. Take medications as instructed. Patient questions asked and answered. ER precautions given, patient instructed to return to ER immediately for any new or worsening of symptoms. Mathew Haider Dec 10, 2017 16:42
[2017-12-10] MEDS ORDERED: Azithromycin 250mg tab ORAL ONE (16:45)
[2017-12-10] MEDS ORDERED: Lidocaine 1% MPF 10mg/ml 5ml INJ ONE (16:45)
[2017-12-10 17:05] LABS: APPEARANCE,URINE CLEAR; BILIRUBIN, URINE NEGATIVE (NEGATIVE); COLOR,URINE PALE YELLOW; GLUCOSE, URINE (UA) NEGATIVE (NEGATIVE); KETONES,URINE NEGATIVE (NEGATIVE); LEUKOCYTE ESTERASE ,URINE 2+ (NEGATIVE); NITRITE,URINE NEGATIVE (NEGATIVE); PH,URINE 6 (4.5-8.0); PROTEIN,URINE NEGATIVE (NEGATIVE); UROBILINOGEN,URINE NORMAL MG/DL (0.0-1.0)
[2017-12-10] MEDS ORDERED: PHENAZOPYRIDIN100 MG ORAL (17:51)
[2017-12-10 18:00] VITALS: BP 109/65
== END 2017-12-10 18:00 | disposition home or self-care (01) ==
LOC: EMR 16:35
DX: R30.0 Dysuria (principal); Z11.3 Encounter for screening for infections with a predominantly sexual mode of transmission
CPT/HCPCS: 81003; 81025; 96372; 99283; J0696; Q0144

== ENCOUNTER 2018-01-10 17:59 | Emergency (ER) | payer MEDICAID ==
[~2018-01-10] VITALS: Ht 154.9 cm; Wt 65.8 kg
[~2018-01-10 17:59] MED LIST changes: +PHENAZOPYRIDIN100 MG ORAL
--- NOTE | 2018-01-10 18:29 | Emergency Room Report ---
History of Present Illness General Chief Complaint: Female Urogenital Problems Source: Patient, Medical Record Present Illness HPI 22-year-old female presents with vaginal discharge and pelvic pain for one day. Patient states that she had infidelity with another man in November 2017 and was later reported from [facility] that this gentleman had given them Chlamydia recently. Patient states that she was evaluated for chlamydia 3 weeks ago between her and her spouse states that her test was negative. Patient states that today she has thick white discharge with diffuse pelvic pain and moderate to severe discomfort in the vaginal area. Patient states she does have some itching but is more concerned about this pain that is present in the pelvic region. The pain does not lateralize and is generalized. Patient has no modifying factors. Patient denies any nausea, vomiting, diarrhea, dysuria, urinary frequency, or rashes. Allergies: Coded Allergies: No Known Allergies (Unverified , 10/19/16) Patient History Past Medical History: see triage record Last Menstrual Period: 12/23/17 Reviewed Nursing Documentation: PMH: Agreed; PSxH: Agreed Nursing Documentation-PMH Past Medical History: No History, Except For Hx Gastrointestinal Problems: Yes - peptic ulcer ; cholecystectomy in 2017 Review of Systems All Other Systems: negative except mentioned in HPI Physical Exam Vital Signs Date Time Temp Pulse Resp B/P (MAP) Pulse Ox O2 Delivery O2 Flow Rate FiO2 01/10/18 18:02 98.3 78 18 121/79 98 Room Air 98.2 Sp02 EP Interpretation: reviewed, normal General Appearance: no apparent distress, alert, GCS 15, non-toxic Head: normocephalic, atraumatic Eyes: bilateral eye normal inspection, bilateral eye PERRL ENT: hearing grossly normal, normal pharynx, no angioedema, normal voice Neck: full range of motion, supple/symm/no masses Respiratory: chest non-tender, lungs clear, normal breath sounds, speaking full sentences Cardiovascular #1: regular rate, rhythm, no edema Gastrointestinal: soft, non-distended, tenderness - suprapubic Genitourinary: no CVA tenderness, deferred Musculoskeletal: gait/station normal Neurologic: alert, oriented x3, responsive, motor strength/tone normal, sensory intact, speech normal Skin: normal color, no rash, warm/dry, well hydrated Medical Decision Making PA Attestation Dr. Knight my supervising physician with whom patient management has been discussed with. Diagnostic Impression: Primary Impression: Acute cystitis Qualified Codes: N30.00 - Acute cystitis without hematuria Additional Impression: Vaginal discharge ER Course Pt. presents to the ED c/o pelvic discomfort with vaginal discharge Ddx considered but are not limited to GC, Chlamydia, Trich, UTI, torsion, candiasis, BV, Vital signs: are WNL, pt. is afebrile H&PE are most consistent with Acute cystitis with vaginal discharge with possible exposure to STI. ORDERS: UA+ Leuks, GC/Chlamydia by EARNESTINE pending, HCG neg. ED INTERVENTIONS: 250mg Rocephin IM, 1G Azitrhomycin DISCHARGE: At this time pt. is stable for d/c to home. Will provide printed patient care instructions, and any necessary prescriptions. Care plan and follow up instructions have been discussed with the patient prior to discharge. Laboratory Tests Test 01/10/18 18:19 Urine Color Pale yellow Urine Appearance Slightly cloudy Urine pH 9 (4.5-8.0) Urine Specific [place] 1.015 (1.005-1.035) Urine Protein Negative (NEGATIVE) Urine Glucose (UA) Negative (NEGATIVE) Urine Ketones Negative (NEGATIVE) Urine Blood Negative (NEGATIVE) Urine Nitrite Negative (NEGATIVE) Urine Bilirubin Negative (NEGATIVE) Urine Urobilinogen Normal MG/DL (0.0-1.0) Urine Leukocyte Esterase 2+ (NEGATIVE) H Urine RBC 0-2 /HPF (0 - 2) Urine WBC 2-4 /HPF (0 - 2) Urine Squamous Epithelial Cells Few /LPF (NONE/OCC) Urine Amorphous Sediment Few /LPF (NONE) H Urine Bacteria Few /HPF (NONE) Urine HCG, Qualitative Negative (NEGATIVE) Chlamydia trachomatis RNA Pending Neisseria gonorrhoeae RNA Pending Last Vital Signs Date Time Temp Pulse Resp B/P (MAP) Pulse Ox O2 Delivery O2 Flow Rate FiO2 01/10/18 18:02 98.3 78 18 121/79 98 Room Air 98.2 Status: unchanged Disposition: HOME, SELF-CARE Condition: Stable Scripts Fluconazole (FLUCONAZOLE) 100 Mg Tablet 150 MG ORAL DAILY, #2 TAB 0 Refills Take 1 tab today. Repeate in 1 week as needed Prov: Germania Duque 01/10/18 Nitrofurantoin Monohyd/M-Cryst* (MACROBID 100 MG*) 100 Mg Capsule 100 MG ORAL EVERY 12 HOURS for 7 Days, #14 CAP Prov: Germania Duque 01/10/18 Patient Instructions: Vaginitis, Urinary Tract Infection Additional Instructions: Take medication as directed. Patient advised to follow up with community clinic for formal STD screening. In general, watch out for any genital itching, burning , sores, or discharge. But be aware that many STIs do not cause any symptoms. The best way to know for sure if you have an STI is to be screened. If you have an STI, you will need treatment. The right treatment will depend on the type of STI you have. If you do have an infection, you might need to tell the people you could have infected. There is no surefire way to prevent all STIs, but there are things you can do to reduce your chances of catching one. The most important thing you can do is to wear a condom every time you have sex. Both male and female condoms can protect against STIs. But be aware that male condoms made out of "natural materials," such as sheep intestine, do NOT protect against STIs. If you are 26 years old or younger, you can get a vaccine to protect against HPV, the virus that causes genital warts. If you do not have hepatitis A or B and have not already gotten the vaccine for hepatitis A or B, you can get those vaccines, too. If your partner has herpes, he or she can reduce the chances of infecting you by taking a medicine called valacyclovir. If you are at very high risk of catching HIV, you might be able to take a pill every day to reduce the chances that you will get HIV. This is an option only for very few at-risk people. Germania Duque Jan 10, 2018 18:29
[2018-01-10] MEDS ORDERED: Lidocaine 1% MPF 10mg/ml 5ml INJ ONE (18:30)
[2018-01-10] MEDS ORDERED: Azithromycin 250mg tab ORAL ONE (18:30)
[2018-01-10 18:51] LABS: APPEARANCE,URINE SLIGHTLY CLOUDY; BILIRUBIN, URINE NEGATIVE (NEGATIVE); COLOR,URINE PALE YELLOW; GLUCOSE, URINE (UA) NEGATIVE (NEGATIVE); KETONES,URINE NEGATIVE (NEGATIVE); LEUKOCYTE ESTERASE ,URINE 2+ (NEGATIVE); NITRITE,URINE NEGATIVE (NEGATIVE); PH,URINE 9 (4.5-8.0); PROTEIN,URINE NEGATIVE (NEGATIVE); UROBILINOGEN,URINE NORMAL MG/DL (0.0-1.0)
[2018-01-10 18:58] VITALS: BP 121/79
[2018-01-10] MEDS ORDERED: NITROFURANTOIN100 M2 ORAL (19:06)
[2018-01-10] MEDS ORDERED: FLUCONAZOLE100 MG ORAL (19:06)
[2018-01-10 19:34] VITALS: BP 121/79
== END 2018-01-10 19:30 | disposition home or self-care (01) ==
LOC: EMR 18:38
DX: N30.00 Acute cystitis without hematuria (principal); N89.8 Other specified noninflammatory disorders of vagina; Z90.49 Acquired absence of other specified parts of digestive tract; Z87.11 Personal history of peptic ulcer disease
CPT/HCPCS: 81003; 81025; 87491; 87590; 96372; 99283; J0696; Q0144

== ENCOUNTER 2018-03-01 11:41 | Emergency (ER) | payer MEDICAID ==
[~2018-03-01] VITALS: Ht 154.9 cm; Wt 59.0 kg
[~2018-03-01 11:41] MED LIST changes: +FLUCONAZOLE100 MG ORAL
[2018-03-01 11:48] VITALS: BP 123/83
[2018-03-01] MEDS ORDERED: Isovue-300 100ml vial INJ PRN (12:15)
[2018-03-01] MEDS ORDERED: Morphine Sulfate 4mg/ml Inj (IV USE ONLY) IVP ONE ×2 (12:15→15:00)
[2018-03-01 12:21] LABS: APPEARANCE,URINE SLIGHTLY CLOUDY; BILIRUBIN, URINE NEGATIVE (NEGATIVE); COLOR,URINE YELLOW; GLUCOSE, URINE (UA) NEGATIVE (NEGATIVE); KETONES,URINE NEGATIVE (NEGATIVE); LEUKOCYTE ESTERASE ,URINE 1+ (NEGATIVE); NITRITE,URINE NEGATIVE (NEGATIVE); PH,URINE 7 (4.5-8.0); PROTEIN,URINE 1+ (NEGATIVE); UROBILINOGEN,URINE NORMAL MG/DL (0.0-1.0)
[2018-03-01 12:33] LABS: BASOPHILS % (AUTO) 0.5 % (0.0-2.0); EOSINOPHILS % (AUTO) 0.3 % (0.0-3.0); HEMATOCRIT 41.8 % (37.0-47.0); HEMOGLOBIN 13.8 G/DL (12.0-16.0); LYMPHOCYTES % (AUTO) 28.9 % (20.0-45.0); MEAN CORPUSCULAR VOLUME 85 FL (80-99); MONOCYTES % (AUTO) 5.6 % (1.0-10.0); NEUTROPHILS % (AUTO) 64.7 % (45.0-75.0); PLATELET COUNT 200 K/UL (150-450); RED BLOOD COUNT 4.94 M/UL (4.20-5.40); RED CELL DISTRIBUTION WIDTH 10.9 % (11.6-14.8); WHITE BLOOD COUNT 6.6 K/UL (4.8-10.8)
[2018-03-01 12:47] LABS: ANION GAP 9 mmol/L (5-15); BLOOD UREA NITROGEN 8 mg/dL (7-18); CALCIUM 9.1 MG/DL (8.5-10.1); CARBON DIOXIDE 27 MMOL/L (21-32); CHLORIDE 104 MMOL/L (98-107); CREATININE 0.7 MG/DL (0.55-1.30); POTASSIUM 3.6 MMOL/L (3.5-5.1); SODIUM 140 MMOL/L (136-145)
[2018-03-01 12:52] LABS: ALANINE AMINOTRANSFERASE 20 U/L (12-78); ALBUMIN 3.9 G/DL (3.4-5.0); ALBUMIN/GLOBULIN RATIO 1.1 (1.0-2.7); ALKALINE PHOSPHATASE 98 U/L (46-116); ASPARTATE AMINO TRANSFERASE 12 U/L (15-37); BILIRUBIN,TOTAL 0.4 MG/DL (0.2-1.0)
--- NOTE | 2018-03-01 14:04 | Diagnostic Imaging Report ---
Indication:Lower abdominal and pelvic pain Technique: Grayscale and duplex Doppler imaging of the pelvis performed utilizing a transabdominal and endovaginal scan. Comparison: None Findings: The size, contour, and configuration of the uterus is within normal limits. The endometrium is uniformly echogenic and normal in thickness measuring 1 to 2 mm. Uterus measures 8.7 x 8.6 x 4.9 cm. The ovaries appear normal bilaterally with good dopplerable blood flow. There is no significant free fluid identified. Left ovary 2.3 x 1.9 x 1.4 cm. Right ovary 2.9 x 2.9 x 1.7 cm. IMPRESSION: Negative pelvic ultrasound. No acute findings.
--- NOTE | 2018-03-01 14:36 | Diagnostic Imaging Report ---
Indication: Abdominal pain Technique: Continuous helical transaxial imaging of the abdomen and pelvis was obtained from the lung bases to the pubic symphysis during intravenous contrast administration. Coronal 2-D reformats were also obtained. Study obtained in a Siemens sensation [address] Automatic Exposure Control was utilized. Total Dose length Product (DLP): 803.[address] Dose Index Volume (CTDIvol): 15.47 mGy Comparison: None Findings: The lung bases are clear. Cholecystectomy noted. Pancreas is unremarkable. There is slightly increased vascularity in the adnexa bilaterally and the both ovarian veins are somewhat prominent. Consider pelvic congestion syndrome. No hydronephrosis seen. There is a 1 cm cyst in the left kidney. No definite renal stones identified. No ascites or free air identified. The appendix is normal. Small umbilical hernia containing fat demonstrated. IMPRESSION: Slightly increased vascularity of the pelvis. This could very well be normal. Consider pelvic congestion syndrome under the appropriate clinical circumstances. Left renal cyst. Status post cholecystectomy. Tiny umbilical hernia containing fat Negative exam otherwise The CT scanner at [facility] is accredited by the [employer] and the scans are performed using dose optimization techniques as appropriate to a performed exam including Automatic Exposure control.
[2018-03-01] MEDS ORDERED: NORCO 5-325 TA1 EACH ORAL (14:59)
[2018-03-01] MEDS ORDERED: RANITIDINE HCL150 MG ORAL (14:59)
[2018-03-01] MEDS ORDERED: DICYCLOMINE HCL10 MG PO (14:59)
[2018-03-01] MEDS ORDERED: AMOXICILLIN500 MG ORAL (14:59)
[2018-03-01] MEDS ORDERED: Ketorolac 30mg Inj IV ONE (15:00)
[2018-03-01] MEDS ORDERED: COLACE100 MG ORAL (15:08)
[2018-03-01] MEDS ORDERED: MAGNESIUM CITR296 M1 PO (15:08)
[2018-03-01 15:34] VITALS: BP 98/64
--- NOTE | 2018-03-03 23:16 | Emergency Room Report ---
History of Present Illness General Chief Complaint: Abdominal Pain Source: Patient Present Illness HPI 22-year-old female presents ED complaining of abdominal pain. Started one week ago. Getting progressively worse. Pain is sharp, 10 out of 10, nonradiating. Notes nausea and vomiting. Also complaining of left ear pain. Denies fevers or chills. Denies sore throat or cough. Denies dysuria or hematuria. No other aggravating relieving factors. Denies any other associated symptoms Allergies: Coded Allergies: No Known Allergies (Unverified , 10/19/16) Patient History Past Medical History: GERD Past Surgical History: noy Pertinent Family History: none Social History: Denies: smoking, alcohol use, drug use Last Menstrual Period: 12/23/17 Now: No Immunizations: UTD Reviewed Nursing Documentation: PMH: Agreed; PSxH: Agreed Nursing Documentation-PMH Past Medical History: No History, Except For Hx Gastrointestinal Problems: Yes - peptic ulcer ; cholecystectomy in 2017 Review of Systems All Other Systems: negative except mentioned in HPI Physical Exam Vital Signs Date Time Temp Pulse Resp B/P (MAP) Pulse Ox O2 Delivery O2 Flow Rate FiO2 03/01/18 11:46 98.3 82 18 123/83 96 Room Air 98.2 Sp02 EP Interpretation: reviewed, normal General Appearance: no apparent distress, alert, GCS 15, non-toxic Head: normocephalic, atraumatic Eyes: bilateral eye normal inspection, bilateral eye PERRL ENT: hearing grossly normal, normal pharynx, no angioedema, normal voice, other - L TM poor light reflex Neck: full range of motion, supple/symm/no masses Respiratory: chest non-tender, lungs clear, normal breath sounds, speaking full sentences Cardiovascular #1: regular rate, rhythm, no edema Cardiovascular #2: 2+ carotid (R), 2+ carotid (L), 2+ radial (R), 2+ radial (L) , 2+ dorsalis pedis (R), 2+ dorsalis pedis (L) Gastrointestinal: normal bowel sounds, soft, non-distended, no rebound, guarding, tenderness Rectal: deferred Genitourinary: normal inspection, no CVA tenderness Musculoskeletal: back normal, gait/station normal, normal range of motion, non- tender Neurologic: alert, oriented x3, responsive, motor strength/tone normal, sensory intact, speech normal Psychiatric: judgement/insight normal, memory normal, mood/affect normal, no suicidal/homicidal ideation Reflexes: 3+ bicep (R), 3+ bicep (L), 3+ tricep (R), 3+ tricep (L), 3+ knee (R) , 3+ knee (L) Skin: normal color, no rash, warm/dry, well hydrated Lymphatic: no adenopathy Medical Decision Making Diagnostic Impression: Primary Impression: Constipation Qualified Codes: K59.00 - Constipation, unspecified Additional Impressions: Otitis media Qualified Codes: H66.90 - Otitis media, unspecified, unspecified ear Abdominal pain Qualified Codes: R10.9 - Unspecified abdominal pain ER Course Hospital Course 22-year-old F presents to ED with abdominal pain, L ear pain Differential diagnosis includes-appendicitis, cholecystitis, small bowel obstruction, gastritis, Clinical course Patient placed on stretcher. After initial history and physical I ordered labs , IV fluids, pain medications and CT A/P Labs - no leukocytosis, electrolytes ok, LFTs normal, UA unremarkable CT A/P - copious stool noted , no acute process Discussed findings with patient. Station states that she has difficulty with bowel movements and often strains. We'll provide stool softeners. We'll provide antibiotics for her otitis media Safe for discharge close outpatient follow-up I feel this is a highly complex case requiring extensive working including EKG/ Rhythm strip, Xray/CT/US, Blood/urine lab work, repeat exams while in ED, and administration of strong opiates/narcotics for pain control, admission to hospital or close patient follow up. Diagnosis - constipation, otitis media, abdominal pain Stable and discharged to home with Rx Mag citrate, Colace, amoxicillin, zantac, bentyl. instructed on high-fiber diet. Followup with PMD. Return to ED if symptoms recur or worsen Labs Test 03/01/18 12:05 03/01/18 12:22 Urine Color Yellow Urine Appearance Slightly cloudy Urine pH 7 (4.5-8.0) Urine Specific [place] 1.020 (1.005-1.035) Urine Protein 1+ (NEGATIVE) Urine Glucose (UA) Negative (NEGATIVE) Urine Ketones Negative (NEGATIVE) Urine Blood 1+ (NEGATIVE) Urine Nitrite Negative (NEGATIVE) Urine Bilirubin Negative (NEGATIVE) Urine Urobilinogen Normal MG/DL (0.0-1.0) Urine Leukocyte Esterase 1+ (NEGATIVE) Urine RBC 0-2 /HPF (0 - 2) Urine WBC 2-4 /HPF (0 - 2) Urine Squamous Epithelial Cells Moderate /LPF (NONE/OCC) Urine Bacteria Few /HPF (NONE) Urine Mucus Few /LPF (NONE/OCC) Urine HCG, Qualitative Negative (NEGATIVE) White Blood Count 6.6 K/UL (4.8-10.8) Red Blood Count 4.94 M/UL (4.20-5.40) Hemoglobin 13.8 G/DL (12.0-16.0) Hematocrit 41.8 % (37.0-47.0) Mean Corpuscular Volume 85 FL (80-99) Mean Corpuscular Hemoglobin 27.9 PG (27.0-31.0) Mean Corpuscular Hemoglobin Concent 32.9 G/DL (32.0-36.0) Red Cell Distribution Width 10.9 % (11.6-14.8) Platelet Count 200 K/UL (150-450) Mean Platelet Volume 11.9 FL (6.5-10.1) Neutrophils (%) (Auto) 64.7 % (45.0-75.0) Lymphocytes (%) (Auto) 28.9 % (20.0-45.0) Monocytes (%) (Auto) 5.6 % (1.0-10.0) Eosinophils (%) (Auto) 0.3 % (0.0-3.0) Basophils (%) (Auto) 0.5 % (0.0-2.0) Sodium Level 140 MMOL/L (136-145) Potassium Level 3.6 MMOL/L (3.5-5.1) Chloride Level 104 MMOL/L (98-107) Carbon Dioxide Level 27 MMOL/L (21-32) Anion Gap 9 mmol/L (5-15) Blood Urea Nitrogen 8 mg/dL (7-18) Creatinine 0.7 MG/DL (0.55-1.30) Estimat Glomerular Filtration Rate > 60 mL/min (>60) Glucose Level 94 MG/DL (74-106) Calcium Level 9.1 MG/DL (8.5-10.1) Total Bilirubin 0.4 MG/DL (0.2-1.0) Aspartate Amino Transf (AST/SGOT) 12 U/L (15-37) Alanine Aminotransferase (ALT/SGPT) 20 U/L (12-78) Alkaline Phosphatase 98 U/L (46-116) Total Protein 7.5 G/DL (6.4-8.2) Albumin 3.9 G/DL (3.4-5.0) Globulin 3.6 g/dL Albumin/Globulin Ratio 1.1 (1.0-2.7) Lipase 95 U/L (73-393) CT/MRI/US Diagnostic Results CT/MRI/US Diagnostic Results : Imaging Test Ordered: CT A/P Impression no acute process. fecal impaction noted Last Vital Signs Date Time Temp Pulse Resp B/P (MAP) Pulse Ox O2 Delivery O2 Flow Rate FiO2 03/01/18 15:34 98.3 63 18 98/64 100 Room Air 208.8 Status: improved Disposition: HOME, SELF-CARE Condition: Stable Scripts Magnesium Citrate (MAGNESIUM CITRATE) 296 Ml Solution 150 ML PO DAILY for 2 Days, UNIT Prov: Mirza Dawkins MD 03/01/18 Docusate Sodium* (COLACE*) 100 Mg Capsule 100 MG ORAL THREE TIMES A DAY, #30 CAP Prov: Mirza Dawkins MD 03/01/18 Ranitidine Hcl* (ZANTAC*) 150 Mg Tablet 150 MG ORAL TWICE A DAY, #30 TAB Prov: Mirza Dawkins MD 03/01/18 Amoxicillin* (AMOXIL*) 500 Mg Capsule 500 MG ORAL THREE TIMES A DAY for 10 Days, #30 CAP Prov: Mirza Dawkins MD 03/01/18 Dicyclomine Hcl* (DICYCLOMINE HCL*) 10 Mg Capsule 10 MG PO QID for 5 Days, CAP Prov: Mirza Dawkins MD 03/01/18 Patient Instructions: Abdominal Pain, Adult Mirza Dawkins MD Mar 03, 2018 23:16
== END 2018-03-01 15:35 | disposition home or self-care (01) ==
LOC: EMR 12:13
DX: K59.00 Constipation, unspecified (principal); H66.92 Otitis media, unspecified, left ear; R10.9 Unspecified abdominal pain
CPT/HCPCS: 36415; 74177; 76856; 80053; 81003; 81025; 83690; 85025; 96361; 96374; 96375; 96376; 99284; J1885; J2270; Q9967; S0028

== ENCOUNTER 2018-07-23 12:42 | Emergency (ER) | payer MEDICAID ==
[~2018-07-23] VITALS: Ht 154.9 cm; Wt 65.8 kg
[~2018-07-23 12:42] MED LIST changes: +AMOXICILLIN500 MG ORAL; +COLACE100 MG ORAL; +DICYCLOMINE HCL10 MG PO; +MAGNESIUM CITR296 M1 PO; +NORCO 5-325 TA1 EACH ORAL; +RANITIDINE HCL150 MG ORAL
[2018-07-23 12:54] VITALS: BP 124/72
[2018-07-23] MEDS ORDERED: NKM (12:58)
[2018-07-23 13:19] LABS: APPEARANCE,URINE CLEAR; BILIRUBIN, URINE NEGATIVE (NEGATIVE); COLOR,URINE PALE YELLOW; GLUCOSE, URINE (UA) NEGATIVE (NEGATIVE); KETONES,URINE NEGATIVE (NEGATIVE); LEUKOCYTE ESTERASE ,URINE NEGATIVE (NEGATIVE); NITRITE,URINE NEGATIVE (NEGATIVE); PH,URINE 7 (4.5-8.0); PROTEIN,URINE NEGATIVE (NEGATIVE); UROBILINOGEN,URINE NORMAL MG/DL (0.0-1.0)
--- NOTE | 2018-07-23 13:29 | NUR ---
ED Nurse Note: Pt AAOx4.ambulated in to ER due to cough with yellow phlegm and chills since 07/21/18. Also c/o left pink eye with itching, no discharge since this morning. Also c/o pain while urinating with itching since yesterday
--- NOTE | 2018-07-23 14:25 | Emergency Room Report ---
History of Present Illness General Chief Complaint: Upper Respiratory Illness Source: Patient Present Illness HPI 22-year-old female presents to the emergency department complaining of erythema and sticky discharge in the left eye times one day. Patient also reports upper respiratory symptoms such as cough, nasal congestion and hoarseness of her voice 1 week. Patient denies fevers and chills. Patient also reports dysuria/ itching with urination. Patient states she has had recent unprotected intercourse for which she took plan B for earlier this month. Patient denies abdominal pain or tenderness at this time. She denies swollen tender lymph nodes, joint pain, genital lesions. She states that she had recent antibiotic use after having tooth pulled two and a half weeks ago. Denies eye pain, loss of vision, contact lens or glasses use. pt. denies increased lacrimation. Allergies: Coded Allergies: No Known Allergies (Unverified , 07/23/18) Patient History Past Medical History: see triage record Past Surgical History: none Pertinent Family History: none Last Menstrual Period: Now: No Reviewed Nursing Documentation: PMH: Agreed; PSxH: Agreed Nursing Documentation-PMH Past Medical History: No History, Except For Hx Gastrointestinal Problems: Yes - peptic ulcer ; cholecystectomy in 2017 Review of Systems All Other Systems: negative except mentioned in HPI Physical Exam Vital Signs Date Time Temp Pulse Resp B/P (MAP) Pulse Ox O2 Delivery O2 Flow Rate FiO2 07/23/18 12:54 98.4 84 16 124/72 97 Room Air Sp02 EP Interpretation: reviewed, normal General Appearance: no apparent distress, alert, GCS 15, non-toxic Head: normocephalic, atraumatic Eyes: bilateral eye normal inspection, bilateral eye PERRL, bilateral eye other - Left eye d/c, and erythema as well. ENT: hearing grossly normal, normal voice, TMs + canals normal, moist mucus membranes, pharyngeal erythema Neck: full range of motion Respiratory: chest non-tender, lungs clear, normal breath sounds, speaking full sentences Cardiovascular #1: regular rate, rhythm, no edema Gastrointestinal: normal bowel sounds, non tender, soft Genitourinary: normal inspection, no CVA tenderness Musculoskeletal: back normal, gait/station normal, normal range of motion, non- tender Neurologic: alert, oriented x3, responsive, motor strength/tone normal, sensory intact, speech normal, grossly normal Psychiatric: judgement/insight normal Skin: normal color, no rash, warm/dry, well hydrated Lymphatic: no adenopathy Medical Decision Making PA Attestation Dr. Peters is my supervising Physician whom patient management has been discussed with. Diagnostic Impression: Primary Impression: Acute bacterial conjunctivitis of left eye Additional Impressions: URI, acute Yeast vaginitis ER Course 22-year-old female presents to the emergency department complaining of erythema and sticky discharge in the left eye times one day. Patient also reports upper respiratory symptoms such as cough, nasal congestion and hoarseness of her voice 1 week. Patient denies fevers and chills. Patient also reports dysuria/ itching with urination. Patient states she has had recent unprotected intercourse for which she took plan B for earlier this month. Patient denies abdominal pain or tenderness at this time. She denies swollen tender lymph nodes, joint pain, genital lesions. She states that she had recent antibiotic use after having tooth pulled two and a half weeks ago. Denies eye pain, loss of vision, contact lens or glasses use. pt. denies increased lacrimation. Ddx considered but are not limited to: corneal abrasion, acute glaucoma, globe rupture, FB, Corneal Ulcer, conjunctivitis. Iridis, orbital cellulitis,keratitis , sinusitis, lito's syndrome, URI, UTI, vaginitis. Vital signs: are WNL, pt. is afebrile H&PE are most consistent with: bacterial conjunctivitis, and yeast vaginitis. ORDERS: -UA: No evidence of infection -Hcg: Negative ED INTERVENTIONS: none at this time. DISCHARGE: At this time pt. is stable for d/c to home. Will provide printed patient care instructions, and any necessary prescriptions. Care plan and follow up instructions have been discussed with the patient prior to discharge. Labs Test 07/23/18 13:07 Urine Color Pale yellow Urine Appearance Clear Urine pH 7 (4.5-8.0) Urine Specific [place] 1.015 (1.005-1.035) Urine Protein Negative (NEGATIVE) Urine Glucose (UA) Negative (NEGATIVE) Urine Ketones Negative (NEGATIVE) Urine Blood Negative (NEGATIVE) Urine Nitrite Negative (NEGATIVE) Urine Bilirubin Negative (NEGATIVE) Urine Urobilinogen Normal MG/DL (0.0-1.0) Urine Leukocyte Esterase Negative (NEGATIVE) Urine HCG, Qualitative Negative (NEGATIVE) Last Vital Signs Date Time Temp Pulse Resp B/P (MAP) Pulse Ox O2 Delivery O2 Flow Rate FiO2 07/23/18 12:54 84 16 Room Air 07/23/18 12:54 98.4 124/72 97 Disposition: HOME, SELF-CARE Condition: Stable Scripts Codeine/Promethazine Hcl* (PROMETHAZINE-CODEINE SYRUP*) 118 Ml Syrup 5 ML ORAL Q6H PRN for For Cough, #120 ML 0 Refills Prov: Vijaya Palumbo 07/23/18 Fluconazole (FLUCONAZOLE) 100 Mg Tablet 100 MG ORAL DAILY for 4 Days, #4 TAB 0 Refills Prov: Vijaya Palumbo 07/23/18 Ofloxacin (OCUFLOX) 5 Ml Drops 1 DROP OP TID, #5 ML Prov: Vijaya Palumbo 07/23/18 [facility],REFERRING (PCP) Patient Instructions: Bacterial Conjunctivitis, [id number], Vaginitis, Easy- to-Read Additional Instructions: Take medications as directed. Follow up with a Primary Care Provider in 3-5 days, even if your symptoms have resolved. --Please review list of primary care clinics, if you do not already have a primary care provider Return sooner to ED if new symptoms occur, or current symptoms become worse. Do not drink alcohol, drive, or operate heavy machinery while taking Cough Syrup as this may cause drowsiness. - Please note that this Emergency Department Report was dictated using [employer] conduit layer technology software, occasionally this can lead to erroneous entry secondary to interpretation by the dictation equipment. Vijaya Palumbo Jul 23, 2018 14:25
[2018-07-23] MEDS ORDERED: OCUFLOX5 ML OP (14:27)
[2018-07-23] MEDS ORDERED: FLUCONAZOLE100 MG ORAL (14:27)
[2018-07-23] MEDS ORDERED: PROMETHAZINE-C118 M1 ORAL (14:27)
[2018-07-23 14:45] VITALS: BP 124/72
--- NOTE | 2018-07-23 14:45 | NUR ---
ER DISCHARGE NOTE: Patient is cleared to be discharged per ERMD, pt is aox4, on room air, with stable vital signs. pt was given dc and prescription instructions, pt was able to verbalize understanding, pt id band removed. pt is able to ambulate with steady gait. pt took all belongings.
== END 2018-07-23 14:56 | disposition home or self-care (01) ==
LOC: EMR 13:30
DX: H10.32 Unspecified acute conjunctivitis, left eye (principal); B96.89 Other specified bacterial agents as the cause of diseases classified elsewhere; J06.9 Acute upper respiratory infection, unspecified; B37.3 Candidiasis of vulva and vagina; Z87.11 Personal history of peptic ulcer disease; Z90.49 Acquired absence of other specified parts of digestive tract
CPT/HCPCS: 81003; 81025; 99283

== ENCOUNTER 2018-08-20 10:22 | Emergency (ER) | payer MEDICAID, OTHER ==
[~2018-08-20] VITALS: Ht 154.9 cm; Wt 65.8 kg
[~2018-08-20 10:22] MED LIST changes: +NKM; +OCUFLOX5 ML OP; +PROMETHAZINE-C118 M1 ORAL
--- NOTE | 2018-08-20 11:12 | Emergency Room Report ---
History of Present Illness General Chief Complaint: Female Urogenital Problems Source: Patient Present Illness HPI Patient is a 22-year-old female presented after increased right-sided buttock pain. Patient reports of increased buttock pain and swelling for the past 3 days. She reports having noticed a small painful area and has had similar symptoms in the past. Patient a prior history of abscess. She denies any fever. Patient denies any prior history of diabetes or immunocompromise. Allergies: Coded Allergies: No Known Allergies (Unverified , 07/23/18) Patient History Past Medical History: see triage record Now: No Reviewed Nursing Documentation: PMH: Agreed; PSxH: Agreed Nursing Documentation-PMH Hx Gastrointestinal Problems: Yes - peptic ulcer ; cholecystectomy in 2017 Review of Systems All Other Systems: negative except mentioned in HPI Physical Exam Vital Signs Date Time Temp Pulse Resp B/P (MAP) Pulse Ox O2 Delivery O2 Flow Rate FiO2 08/20/18 10:35 98.4 93 19 113/78 97 Room Air General Appearance: well appearing, no apparent distress, alert, GCS 15 Head: normocephalic, atraumatic ENT: hearing grossly normal, normal voice Neck: full range of motion, supple Respiratory: chest non-tender, lungs clear, normal breath sounds, no respiratory distress, speaking full sentences Cardiovascular #1: normal inspection, regular rate, rhythm Gastrointestinal: normal inspection, non tender, soft Musculoskeletal: no calf tenderness Neurologic: normal gait Psychiatric: mood/affect normal Skin: no rash, other - right buttock with tender indurated area about 2cm Procedures Incision and Drainage Incision and Drainage : Consent: Emergent Site: buttock Blade Size: 11 I & D Procedure: betadine prep, sterile drapes applied Wound's Depth, Shape: superficial Wound Length (cm): 1 Anesthesia: Lidocaine w/ Epi Volume Anesthetic (ccs): 3 Patient Tolerated: Well Complications: None Progress minimal purulent drainage Medical Decision Making Diagnostic Impression: Primary Impression: Abscess ER Course Patient presented for skin rash. Differential diagnosis included was not limited to abscess, cellulitis, folliculitis, necrotizing fascitis. Patient has a benign exam and does not appear to require any further imaging or laboratory testing at this time. Patient was advised risk benefits and alternatives of incision and drainage including but not limited to bleeding infection and inability to drain purulent material. Patient's wound was incised and drained after anesthetic. The patient is advised to follow up with primary care doctor in 1-2 days. Patient is advised to return if any worsening condition or if any changes in status that are concerning. This report is dictated with [employer] vehicle and equipment cleaner software which may occasionally lead to discrepancies related to use of this software. Last Vital Signs Date Time Temp Pulse Resp B/P (MAP) Pulse Ox O2 Delivery O2 Flow Rate FiO2 08/20/18 10:35 98.4 93 19 113/78 97 Room Air Status: improved Disposition: HOME, SELF-CARE Condition: Stable Scripts Doxycycline Monohydrate* (DOXYCYCLINE MONOHYDRATE*) 100 Mg Capsule 100 MG ORAL Q12H, #14 CAP 0 Refills Prov: Humphrey Angulo MD 08/20/18 Cephalexin* (KEFLEX*) 500 Mg Capsule 500 MG ORAL EVERY 6 HOURS, #28 CAP Prov: Humphrey Angulo MD 08/20/18 Referrals: [facility],REFERRING (PCP) Humphrey Angulo MD Aug 20, 2018 11:12
[2018-08-20] MEDS ORDERED: Lidocaine 1% 10mg/ml/Epi 0.005mg/ml 30ml vial INJ ONE ×2 (11:15)
--- NOTE | 2018-08-20 11:15 | NUR ---
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 pt states noticed painful spot on right buttocks started on or monday. pt states has increased inpain over weekend and that she noted drainage on clothing this am. dried blood noted at site. pt with increased pain with md palpation. pt desires to have I/D done by md, aware pus may/may not drain. supplies placed at bs for
[2018-08-20] MEDS ORDERED: CEPHALEXIN500 MG ORAL (11:18)
[2018-08-20] MEDS ORDERED: DOXYCYCLINE MO100 MG ORAL (11:18)
--- NOTE | 2018-08-20 11:53 | NUR ---
ED Nurse Note:pt tolerates I/D well. DSD placed afterwards. awaiting dc aci
--- NOTE | 2018-08-20 11:54 | NUR ---
ED Nurse Note: urine is in lab awaiting order for ua
[2018-08-20 12:30] VITALS: BP 110/72
--- NOTE | 2018-08-20 12:30 | NUR ---
ED Nurse Note: pt given dc aci and script by clare nichole rn.
[2018-08-20 14:27] VITALS: BP 110/72
== END 2018-08-20 12:30 | disposition home or self-care (01) ==
LOC: EMR 10:55
DX: L02.31 Cutaneous abscess of buttock (principal)
CPT/HCPCS: 10060; 96374; 99283; Z7502

== ENCOUNTER 2019-04-30 15:49 | Emergency (ER) | payer MEDICAID ==
[~2019-04-30] VITALS: Ht 154.9 cm; Wt 52.6 kg
[~2019-04-30 15:49] MED LIST changes: +CEPHALEXIN500 M1 ORAL; +CEPHALEXIN500 MG ORAL; +DOXYCYCLINE MO100 MG ORAL; +ZOFRAN4 M1 ORAL
[2019-04-30 16:03] VITALS: BP 126/75
--- NOTE | 2019-04-30 16:03 | NUR ---
ED Nurse Note: Patient arrived to ED from home by car complaining of 10/10 upper abdominal pain that started 2 days ago. Patient states she had her gallbladder taken out a few years ago. Pain is in the upper abdomen and feels like burning. Patient feels weak and dizzy. Patient is AxO x 4, no s/s of acute distress. Patient on the child monitor, bed in lowest position, VSS. Blood and urine sent to lab.
[2019-04-30] MEDS ORDERED: Dicyclomine HCl 10mg/5ml oral soln ORAL ONE (16:15)
[2019-04-30] MEDS ORDERED: Ketorolac 30mg Inj IV ONE (16:15)
[2019-04-30] MEDS ORDERED: Mylanta II UD 30ml ORAL ONE (16:15)
[2019-04-30] MEDS ORDERED: Lidocaine 2% Visc 15ml soln ORAL ONE (16:15)
--- NOTE | 2019-04-30 16:20 | Emergency Room Report ---
History of Present Illness General Chief Complaint: Abdominal Pain Source: Patient Present Illness HPI Disclaimer: Please note that this report is being documented using [employer] technology. This can lead to erroneous entry secondary to incorrect interpretation by the dictating instrument. HPI: 23-year-old female with history of peptic ulcer disease, status post cholecystectomy, recent urinary tract infection presents for evaluation of abdominal pain and lightheadedness. Symptoms have been present for approximately 1 day. She noted lightheadedness and a burning epigastric pain that radiated up into her chest and throat earlier today. Does not recall any change in her diet. Was diagnosed with peptic ulcer disease many years ago but does not take medications. She was seen in the emergency department last week diagnosed urinary tract infection started on Keflex which she states she has been compliant and still taking. Still complains of mild dysuria though reports it significantly improved after starting antibiotics. Denies vomiting but reports nausea. Denies diarrhea or hematochezia, or melena. Denies chest pain, palpitations, shortness of breath, cough. PMH: Peptic ulcer disease, PSH: Cholecystectomy Allergies: None reported Social Hx: Social alcohol use Allergies: Coded Allergies: No Known Allergies (Unverified , 07/23/18) Patient History Last Menstrual Period: 04/03/19 Now: No Nursing Documentation-PMH Hx Gastrointestinal Problems: Yes - peptic ulcer ; cholecystectomy in 2017 Review of Systems All Other Systems: negative except mentioned in HPI Physical Exam Vital Signs Date Time Temp Pulse Resp B/P (MAP) Pulse Ox O2 Delivery O2 Flow Rate FiO2 04/30/19 15:55 98.4 72 18 126/75 (92) 97 Room Air General: Awake and alert, no acute distress HEENT: NC/AT. EOMI. Cardiovascular: RRR. S1 and S2 normal. No murmur appreciated Resp: Normal work of breathing. No cough, wheezing or crackles appreciated Abdomen: Abdomen is soft, nondistended. Tender palpation in the epigastrium. Mild tenderness in the right upper quadrant in the left upper quadrant. Mild tenderness to suprapubic region. No significant tenderness in the lower quadrants. No rebound. No mass appreciated. Skin: Intact. No abrasions, laceration or rash over the exposed skin MSK: Normal tone and bulk. Moving all extremities. No obvious deformity. Neuro: Awake and alert. Mentating appropriately. Medical Decision Making Diagnostic Impression: Primary Impression: Abdominal pain Additional Impression: Reflux gastritis ER Course 23-year-old female presents for evaluation of abdominal pain and lightheadedness starting today. She is well-appearing and arrives with stable vital signs. Differential includes was not limited to dyspepsia, PUD, gastroenteritis, viral syndrome, pancreatitis, hepatitis, choledocholithiasis, appendicitis, persistent urinary tract infection, nephrolithiasis, pyelonephritis. Of these, either peptic ulcer disease or pancreatitis would fit the patient's clinical picture though we will start a broad metabolic infectious work-up. Will treat with IV antacids, IV fluids, antiemetics and give a GI cocktail. Patient does not appear to have a surgical abdomen at this point. Will defer imaging until she is reevaluated. Laboratory Tests Test 04/30/19 16:20 White Blood Count 8.0 K/UL (4.8-10.8) Red Blood Count 4.76 M/UL (4.20-5.40) Hemoglobin 12.6 G/DL (12.0-16.0) Hematocrit 37.5 % (37.0-47.0) Mean Corpuscular Volume 79 FL (80-99) L Mean Corpuscular Hemoglobin 26.5 PG (27.0-31.0) L Mean Corpuscular Hemoglobin Concent 33.6 G/DL (32.0-36.0) Red Cell Distribution Width 11.3 % (11.6-14.8) L Platelet Count 185 K/UL (150-450) Mean Platelet Volume 9.8 FL (6.5-10.1) Neutrophils (%) (Auto) 64.4 % (45.0-75.0) Lymphocytes (%) (Auto) 28.4 % (20.0-45.0) Monocytes (%) (Auto) 5.9 % (1.0-10.0) Eosinophils (%) (Auto) 0.8 % (0.0-3.0) Basophils (%) (Auto) 0.5 % (0.0-2.0) Urine Color Pale yellow Urine Appearance Clear Urine pH 7 (4.5-8.0) Urine Specific Girdler 1.010 (1.005-1.035) Urine Protein Negative (NEGATIVE) Urine Glucose (UA) Negative (NEGATIVE) Urine Ketones Negative (NEGATIVE) Urine Blood Negative (NEGATIVE) Urine Nitrite Negative (NEGATIVE) Urine Bilirubin Negative (NEGATIVE) Urine Urobilinogen Normal MG/DL (0.0-1.0) Urine Leukocyte Esterase 2+ (NEGATIVE) H Urine RBC 0-2 /HPF (0 - 2) Urine WBC 0-2 /HPF (0 - 2) Urine Squamous Epithelial Cells Few /LPF (NONE/OCC) Urine Bacteria Occasional /HPF (NONE) Sodium Level 140 MMOL/L (136-145) Potassium Level 3.4 MMOL/L (3.5-5.1) L Chloride Level 105 MMOL/L (98-107) Carbon Dioxide Level 27 MMOL/L (21-32) Anion Gap 8 mmol/L (5-15) Blood Urea Nitrogen 12 mg/dL (7-18) Creatinine 0.7 MG/DL (0.55-1.30) Estimate Glomerular Filtration Rate > 60 mL/min (>60) Glucose Level 91 MG/DL (74-106) Calcium Level 9.4 MG/DL (8.5-10.1) Total Bilirubin 0.2 MG/DL (0.2-1.0) Aspartate Amino Transferase (AST) 13 U/L (15-37) L Alanine Aminotransferase (ALT) 16 U/L (12-78) Alkaline Phosphatase 71 U/L (46-116) Total Protein 7.9 G/DL (6.4-8.2) Albumin 4.1 G/DL (3.4-5.0) Globulin 3.8 g/dL Albumin/Globulin Ratio 1.1 (1.0-2.7) Lipase 117 U/L (73-393) Reevaluation Time: 17:42 Last Vital Signs Date Time Temp Pulse Resp B/P (MAP) Pulse Ox O2 Delivery O2 Flow Rate FiO2 04/30/19 15:55 98.4 72 18 126/75 (92) 97 Room Air Status: improved Reevaluation Impression Labs have returned unremarkable. No evidence of pancreatitis, biliary congestion, no white count, patient is feeling much better after receiving GI cocktail and medications. Believes is gastritis. She states she eats chili almost daily and drinks a lot of coffee. We talked about food choices for GERD and need to follow-up. I will restart her on famotidine and Maalox. She had previously been on antacids and stopped taking them. Discussed reasons to return to the emergency room as well as need for follow-up with her PMD. She understands and agrees with the treatment plan will be discharged home. Disposition: HOME, SELF-CARE Condition: Improved Scripts Mag Hydrox/Al Hydrox/Simeth (MAALOX MAXIMUM STRENGTH SUSP) 355 Ml Oral.susp 15 ML PO TID for 5 Days, #355 ML Prov: Ranjan Hudson MD 04/30/19 Ranitidine Hcl* (ZANTAC*) 150 Mg Tablet 150 MG ORAL DAILY, #30 TAB 0 Refills Prov: Ranjan Hudson MD 04/30/19 Referrals: NON PHYSICIAN (PCP) Ranjan Hudson MD Apr 30, 2019 16:20
[2019-04-30 16:30] LABS: APPEARANCE,URINE CLEAR; BILIRUBIN, URINE NEGATIVE (NEGATIVE); COLOR,URINE PALE YELLOW; GLUCOSE, URINE (UA) NEGATIVE (NEGATIVE); KETONES,URINE NEGATIVE (NEGATIVE); LEUKOCYTE ESTERASE ,URINE 2+ (NEGATIVE); NITRITE,URINE NEGATIVE (NEGATIVE); PH,URINE 7 (4.5-8.0); PROTEIN,URINE NEGATIVE (NEGATIVE); UROBILINOGEN,URINE NORMAL MG/DL (0.0-1.0)
[2019-04-30 16:31] LABS: BASOPHILS % (AUTO) 0.5 % (0.0-2.0); EOSINOPHILS % (AUTO) 0.8 % (0.0-3.0); HEMATOCRIT 37.5 % (37.0-47.0); HEMOGLOBIN 12.6 G/DL (12.0-16.0); LYMPHOCYTES % (AUTO) 28.4 % (20.0-45.0); MEAN CORPUSCULAR VOLUME 79 FL (80-99); MONOCYTES % (AUTO) 5.9 % (1.0-10.0); NEUTROPHILS % (AUTO) 64.4 % (45.0-75.0); PLATELET COUNT 185 K/UL (150-450); RED BLOOD COUNT 4.76 M/UL (4.20-5.40); RED CELL DISTRIBUTION WIDTH 11.3 % (11.6-14.8)
[2019-04-30 17:11] LABS: ANION GAP 8 mmol/L (5-15); BLOOD UREA NITROGEN 12 mg/dL (7-18); CALCIUM 9.4 MG/DL (8.5-10.1); CARBON DIOXIDE 27 MMOL/L (21-32); CHLORIDE 105 MMOL/L (98-107); CREATININE 0.7 MG/DL (0.55-1.30); POTASSIUM 3.4 MMOL/L (3.5-5.1); SODIUM 140 MMOL/L (136-145)
[2019-04-30 17:16] LABS: ALANINE AMINOTRANSFERASE 16 U/L (12-78); ALBUMIN 4.1 G/DL (3.4-5.0); ALBUMIN/GLOBULIN RATIO 1.1 (1.0-2.7); ALKALINE PHOSPHATASE 71 U/L (46-116); ASPARTATE AMINO TRANSFERASE 13 U/L (15-37); BILIRUBIN,TOTAL 0.2 MG/DL (0.2-1.0)
[2019-04-30] MEDS ORDERED: MAALOX MAXIMUM355 M1 PO (17:32)
[2019-04-30] MEDS ORDERED: ZANTAC150 MG ORAL (17:32)
[2019-04-30 17:50] VITALS: BP 119/80
--- NOTE | 2019-04-30 17:50 | NUR ---
ER DISCHARGE NOTE: ED Nurse Note: Patient cleared by Dr. Hudson to be discharged. Patient verbalized understanding of DC instructions and medications. IV discontinued without complication, ID band removed. Patient AxO x 4. No s/s of acute distress, vss, afebrile. Advised to f/u w/ PCP or return to ED if s/s persist or worsen.
== END 2019-04-30 17:50 | disposition home or self-care (01) ==
LOC: EMR 16:14
DX: K21.9 Gastro-esophageal reflux disease without esophagitis (principal); Z90.49 Acquired absence of other specified parts of digestive tract; Z87.11 Personal history of peptic ulcer disease
CPT/HCPCS: 36415; 80053; 81003; 83690; 85025; 96361; 96374; 96375; J1885; J2405; J7030; S0028; Z7502; 99284

== ENCOUNTER 2019-07-18 08:48 | Emergency (ER) | payer MEDICAID ==
[~2019-07-18] VITALS: Ht 154.9 cm; Wt 71.2 kg
[~2019-07-18 08:48] MED LIST changes: +MAALOX MAXIMUM355 M1 PO; +ZANTAC150 MG ORAL
--- NOTE | 2019-07-18 08:58 | NUR ---
ED Nurse Note: Patient walked into ED from home c/o 12/29 mid-upper abdominal pain x 2 days. Patient states the pain radiates to her back. Patient also has nausea, no vomiting today, but vomited Monday, Monday, and Monday. Patient had one episode of diarrhea yesterday, had 1 regular BM today. Patient AxO x 4, no s/s of acute distress. 20 g IV started in right AC, blood and urine sent to lab.
[2019-07-18] MEDS ORDERED: Mylanta II UD 30ml ORAL ONE (09:00)
[2019-07-18] MEDS ORDERED: Dicyclomine HCl 10mg/5ml oral soln ORAL ONE (09:00)
--- NOTE | 2019-07-18 09:10 | Emergency Room Report ---
History of Present Illness General Chief Complaint: Abdominal Pain Source: Patient Present Illness HPI 23-year-old female history of cholecystectomy presents with right upper quadrant pain that comes and goes not associated with meals, severity is moderate, intermittent lasting minutes to hours, sharp in nature accompanied with nausea no vomiting, no diarrhea no dysuria, no vaginal discharge, patient presents for evaluation Allergies: Coded Allergies: No Known Allergies (Unverified , 07/23/18) Patient History Past Medical History: see triage record Last Menstrual Period: Jun 17, 2019 Now: No : 5 Para: 2 Reviewed Nursing Documentation: PMH: Agreed; PSxH: Agreed Nursing Documentation-PMH Past Medical History: No History, Except For Hx Gastrointestinal Problems: Yes - peptic ulcer ; cholecystectomy in 2017 Review of Systems All Other Systems: negative except mentioned in HPI Physical Exam Vital Signs Date Time Temp Pulse Resp B/P (MAP) Pulse Ox O2 Delivery O2 Flow Rate FiO2 07/18/19 08:51 98.2 73 18 117/72 (87) 98 Room Air Sp02 EP Interpretation: reviewed, normal General Appearance: well appearing, no apparent distress, alert Head: normocephalic, atraumatic Eyes: bilateral eye PERRL, bilateral eye EOMI ENT: uvula midline, moist mucus membranes Neck: supple, thyroid normal, supple/symm/no masses Respiratory: lungs clear, no respiratory distress, no retraction, no accessory muscle use Cardiovascular #1: normal peripheral pulses, regular rate, rhythm, no edema, no gallop, no murmur Gastrointestinal: soft, no guarding, no rebound, tenderness - Epigastric, right upper quadrant Musculoskeletal: normal inspection Neurologic: alert, oriented x3 Psychiatric: mood/affect normal Skin: no rash, warm/dry Medical Decision Making Diagnostic Impression: Primary Impression: Abdominal pain Qualified Codes: R10.13 - Epigastric pain ER Course 23-year-old female presents with abdominal pain differential diagnosis includes residual gallbladder, appendicitis, diverticulitis, gastritis Patient most likely with gastritis patient improved with antacids CT scan negative labs unremarkable patient states she was supposed to get a endoscopy however she did not follow-up counseled patient to get an endoscopy as an outpatient Laboratory Tests Test 07/18/19 09:10 White Blood Count 5.9 K/UL (4.8-10.8) Red Blood Count 4.64 M/UL (4.20-5.40) Hemoglobin 12.5 G/DL (12.0-16.0) Hematocrit 37.8 % (37.0-47.0) Mean Corpuscular Volume 82 FL (80-99) Mean Corpuscular Hemoglobin 26.8 PG (27.0-31.0) L Mean Corpuscular Hemoglobin Concent 32.9 G/DL (32.0-36.0) Red Cell Distribution Width 13.9 % (11.6-14.8) Platelet Count 157 K/UL (150-450) Mean Platelet Volume 13.6 FL (6.5-10.1) H Neutrophils (%) (Auto) 57.2 % (45.0-75.0) Lymphocytes (%) (Auto) 32.8 % (20.0-45.0) Monocytes (%) (Auto) 8.4 % (1.0-10.0) Eosinophils (%) (Auto) 0.8 % (0.0-3.0) Basophils (%) (Auto) 0.8 % (0.0-2.0) Urine Color Yellow Urine Appearance Clear Urine pH 6 (4.5-8.0) Urine Specific Waka 1.020 (1.005-1.035) Urine Protein Negative (NEGATIVE) Urine Glucose (UA) Negative (NEGATIVE) Urine Ketones Negative (NEGATIVE) Urine Blood 2+ (NEGATIVE) H Urine Nitrite Negative (NEGATIVE) Urine Bilirubin Negative (NEGATIVE) Urine Urobilinogen Normal MG/DL (0.0-1.0) Urine Leukocyte Esterase 1+ (NEGATIVE) H Urine RBC 2-4 /HPF (0 - 2) H Urine WBC 0-2 /HPF (0 - 2) Urine Squamous Epithelial Cells Few /LPF (NONE/OCC) Urine Bacteria Few /HPF (NONE) Urine Mucus Few /LPF (NONE/OCC) H Urine HCG, Qualitative Negative (NEGATIVE) Sodium Level 141 MMOL/L (136-145) Potassium Level 4.0 MMOL/L (3.5-5.1) Chloride Level 106 MMOL/L (98-107) Carbon Dioxide Level 24 MMOL/L (21-32) Anion Gap 11 mmol/L (5-15) Blood Urea Nitrogen 17 mg/dL (7-18) Creatinine 0.6 MG/DL (0.55-1.30) Estimate Glomerular Filtration Rate > 60 mL/min (>60) Glucose Level 81 MG/DL (74-106) Calcium Level 9.3 MG/DL (8.5-10.1) Total Bilirubin 0.3 MG/DL (0.2-1.0) Aspartate Amino Transferase (AST) 17 U/L (15-37) Alanine Aminotransferase (ALT) 17 U/L (12-78) Alkaline Phosphatase 73 U/L (46-116) Total Protein 7.9 G/DL (6.4-8.2) Albumin 4.0 G/DL (3.4-5.0) Globulin 3.9 g/dL Albumin/Globulin Ratio 1.0 (1.0-2.7) Lipase 122 U/L (73-393) Human Chorionic Gonadotropin, Quant < 1 mIU/mL (1-6) L CT/MRI/US Diagnostic Results CT/MRI/US Diagnostic Results : Impression Procedure: CT Abdomen Pelvis w/Contrast Clinical Indication: Abdominal pain, history of prior cholecystectomy, right upper quadrant pain moderate in severity, intermittent, not associated with meals Technique: No oral contrast utilized, per emergency room physician request IV administration nonionic contrast. Venous phase spiral acquisition obtained through the abdomen and pelvis. Multiplanar reconstructions were generated. Total dose length product 324 mGycm. CTDIvol(s) 6 mGy. Dose reduction achieved using automated exposure control Comparison: 03/01/2018 Findings: Lack of enteric contrast limits assessment of the GI tract. The appendix is normal. There is no evidence of colonic diverticulosis or diverticulitis. No small bowel distention. No free or loculated intraperitoneal gas or fluid is evident. Distal esophagus, stomach, duodenum are unremarkable. Tiny fat-containing umbilical hernia again demonstrated Again demonstrated are cholecystectomy clips. The liver, bile ducts, pancreas, spleen, adrenals, right kidney are unremarkable. Left kidney demonstrates a subcentimeter low-attenuation lesion, too small to characterize but unchanged since prior study 03/01/2018, presumably benign simple cyst. No renal or ureteral calculi, hydronephrosis, or hydroureter. No pelvic mass or adenopathy. Unremarkable bladder. Uterus and ovaries are unremarkable. The included lung bases are clear. The bones are unremarkable. Impression: Essentially unremarkable exam. Incidental findings of small left renal cyst, prior cholecystectomy, tiny fat-containing umbilical hernia The CT scanner at [facility] is accredited by the [employer] and the scans are performed using protocols designed to limit radiation exposure to as low as reasonably achievable to attain images of sufficient resolution adequate for diagnostic evaluation. Dictated By: Helder Barfield MD Electronically Signed By: Helder Barfield MD Signed Date/Time 07/18/19 1052 CC: Marky Mays MD Last Vital Signs Date Time Temp Pulse Resp B/P (MAP) Pulse Ox O2 Delivery O2 Flow Rate FiO2 07/18/19 08:51 98.2 73 18 117/72 (87) 98 Room Air Disposition: HOME, SELF-CARE Condition: Stable Scripts Famotidine* (Pepcid 20mg tablet*) 20 Mg Tablet 20 MG ORAL TWICE A DAY, #60 TAB 0 Refills Prov: Marky Mays MD 07/18/19 Referrals: [facility] Patient Instructions: Abdominal Pain, Adult, Gastritis, Adult Additional Instructions: The patient was provided with discharge instructions, notified to follow-up with a primary care doctor and or specialist in the next 24-48 hours, and to return to the ED if they have worsening of their symptoms. Please note that this report is being documented using [employer] technology. This can lead to erroneous entry secondary to incorrect interpretation by the dictating instrument. PLEASE FOLLOW-UP WITH DISC RULER OPERATOR Marky Mays MD Jul 18, 2019 09:10
[2019-07-18] MEDS ORDERED: Omnipaque-300 100ml vial INJ PRN (09:15)
[2019-07-18 09:44] VITALS: BP 117/72
[2019-07-18 10:04] LABS: ANION GAP 11 mmol/L (5-15); BLOOD UREA NITROGEN 17 mg/dL (7-18); CALCIUM 9.3 MG/DL (8.5-10.1); CARBON DIOXIDE 24 MMOL/L (21-32); CHLORIDE 106 MMOL/L (98-107); CREATININE 0.6 MG/DL (0.55-1.30); SODIUM 141 MMOL/L (136-145)
[2019-07-18 10:06] LABS: APPEARANCE,URINE CLEAR; BILIRUBIN, URINE NEGATIVE (NEGATIVE); GLUCOSE, URINE (UA) NEGATIVE (NEGATIVE); KETONES,URINE NEGATIVE (NEGATIVE); LEUKOCYTE ESTERASE ,URINE 1+ (NEGATIVE); NITRITE,URINE NEGATIVE (NEGATIVE); PH,URINE 6 (4.5-8.0); PROTEIN,URINE NEGATIVE (NEGATIVE); UROBILINOGEN,URINE NORMAL MG/DL (0.0-1.0)
[2019-07-18 10:08] LABS: ALANINE AMINOTRANSFERASE 17 U/L (12-78); ALKALINE PHOSPHATASE 73 U/L (46-116); ASPARTATE AMINO TRANSFERASE 17 U/L (15-37); BILIRUBIN,TOTAL 0.3 MG/DL (0.2-1.0)
[2019-07-18 10:15] LABS: COLOR,URINE YELLOW
[2019-07-18] MEDS ORDERED: Morphine Sulfate 4mg/ml Inj (IV USE ONLY) IVP ONE (10:15)
[2019-07-18 10:19] LABS: BASOPHILS % (AUTO) 0.8 % (0.0-2.0); EOSINOPHILS % (AUTO) 0.8 % (0.0-3.0); HEMATOCRIT 37.8 % (37.0-47.0); HEMOGLOBIN 12.5 G/DL (12.0-16.0); LYMPHOCYTES % (AUTO) 32.8 % (20.0-45.0); MEAN CORPUSCULAR VOLUME 82 FL (80-99); MONOCYTES % (AUTO) 8.4 % (1.0-10.0); NEUTROPHILS % (AUTO) 57.2 % (45.0-75.0); PLATELET COUNT 157 K/UL (150-450); RED BLOOD COUNT 4.64 M/UL (4.20-5.40); RED CELL DISTRIBUTION WIDTH 13.9 % (11.6-14.8); WHITE BLOOD COUNT 5.9 K/UL (4.8-10.8)
--- NOTE | 2019-07-18 10:26 | NUR ---
ED Nurse Note: Patient taken to CT.
--- NOTE | 2019-07-18 10:57 | Diagnostic Imaging Report ---
Clinical Indication: Abdominal pain, history of prior cholecystectomy, right upper quadrant pain moderate in severity, intermittent, not associated with meals Technique: No oral contrast utilized, per emergency room physician request IV administration nonionic contrast. Venous phase spiral acquisition obtained through the abdomen and pelvis. Multiplanar reconstructions were generated. Total dose length product 324 mGycm. CTDIvol(s) 6 mGy. Dose reduction achieved using automated exposure control Comparison: 03/01/2018 Findings: Lack of enteric contrast limits assessment of the GI tract. The appendix is normal. There is no evidence of colonic diverticulosis or diverticulitis. No small bowel distention. No free or loculated intraperitoneal gas or fluid is evident. Distal esophagus, stomach, duodenum are unremarkable. Tiny fat-containing umbilical hernia again demonstrated Again demonstrated are cholecystectomy clips. The liver, bile ducts, pancreas, spleen, adrenals, right kidney are unremarkable. Left kidney demonstrates a subcentimeter low-attenuation lesion, too small to characterize but unchanged since prior study 03/01/2018, presumably benign simple cyst. No renal or ureteral calculi, hydronephrosis, or hydroureter. No pelvic mass or adenopathy. Unremarkable bladder. Uterus and ovaries are unremarkable. The included lung bases are clear. The bones are unremarkable. Impression: Essentially unremarkable exam. Incidental findings of small left renal cyst, prior cholecystectomy, tiny fat-containing umbilical hernia The CT scanner at [facility] is accredited by the [employer] and the scans are performed using protocols designed to limit radiation exposure to as low as reasonably achievable to attain images of sufficient resolution adequate for diagnostic evaluation.
[2019-07-18] MEDS ORDERED: FAMOTIDINE20 MG ORAL (11:13)
[2019-07-18] MEDS ORDERED: HYDROcodone/Acetamin 5/325 tab ORAL ONE (11:30)
[2019-07-18 12:05] VITALS: BP 115/75
--- NOTE | 2019-07-18 12:05 | NUR ---
ER DISCHARGE NOTE: Patient is cleared to be discharged per Dr Mays, pt is aox4, on room air, with stable vital signs. pt was given dc and prescription instructions, pt was able to verbalize understanding, pt id band and iv removed. pt is able to ambulate with steady gait. pt took all belongings.
== END 2019-07-18 12:05 | disposition home or self-care (01) ==
LOC: EMR 09:22
DX: R10.13 Epigastric pain (principal); Z90.49 Acquired absence of other specified parts of digestive tract
CPT/HCPCS: 36415; 74177; 80053; 81003; 81025; 83690; 84702; 85025; 96361; 96374; 96375; J2270; J2405; J7030; Q9967; S0028; Z7502; 99284

== ENCOUNTER 2019-09-18 19:44 | Emergency (ER) | payer MEDICAID, OTHER ==
[~2019-09-18] VITALS: Ht 154.9 cm; Wt 72.6 kg
[~2019-09-18 19:44] MED LIST changes: +FAMOTIDINE20 MG ORAL
[2019-09-18 20:05] VITALS: BP 118/80
--- NOTE | 2019-09-18 20:05 | NUR ---
ED Nurse Note: Pt walked into ED from home for c/o R arm pain s/p working out. Pt states she was doing pilates and now has pain and decreased range of motion in R arm, more so elbow area. No deformity or obvious trauma noted. Pt is aaox4, no respiratory or cardiac distress noted.
[2019-09-18] MEDS ORDERED: ROBAXIN-750750 MG PO (20:13)
[2019-09-18] MEDS ORDERED: LIDODERM700 M1 TOPIC (20:13)
[2019-09-18] MEDS ORDERED: TYLENOL325 MG ORAL (20:13)
[2019-09-18] MEDS ORDERED: IBUPROFEN600 M1 ORAL (20:13)
--- NOTE | 2019-09-18 20:14 | Emergency Room Report ---
History of Present Illness General Chief Complaint: Upper Extremity Injury Source: Patient Present Illness HPI 24-year-old female presents with right arm pain that started a few days ago after doing an exercise she endorses right arm pain and right shoulder pain aggravated with movement alleviated with rest severity is moderate, patient reports she was doing planks and push-up exercises now her arm is in a lot of pain she is requesting a work note Allergies: Coded Allergies: No Known Allergies (Unverified , 07/23/18) COVID-19 Screening Contact w/high risk pt: No Recent Travel to affected area: No Experienced COVID-19 symptoms?: No Patient History Past Medical History: see triage record Last Menstrual Period: 09/04/19 Now: No : 5 Para: 2 Reviewed Nursing Documentation: PMH: Agreed; PSxH: Agreed Nursing Documentation-PMH Hx Cardiac Problems: No - anemia Hx Gastrointestinal Problems: Yes - gall bladder removed Review of Systems All Other Systems: negative except mentioned in HPI Physical Exam Vital Signs Date Time Temp Pulse Resp B/P (MAP) Pulse Ox O2 Delivery O2 Flow Rate FiO2 09/18/19 19:52 98.2 79 16 118/80 (93) 96 Room Air General Appearance: well appearing, no apparent distress Head: normocephalic, atraumatic ENT: hearing grossly normal, normal voice Neck: full range of motion, supple Respiratory: no respiratory distress, speaking full sentences Musculoskeletal: other - Right upper extremity: 2+ radial pulses radial median ulnar nerve intact, tenderness to palpation posterior shoulder, triceps, compartments are soft, empty can test positive Neurologic: alert, normal gait Psychiatric: mood/affect normal Skin: no rash Medical Decision Making Diagnostic Impression: Primary Impression: Muscle strain ER Course 24-year-old female presents with most likely a right muscular strain versus rotator cuff tear versus rotator cuff strain patient refused a test states she is not understands the risk and benefits will provide her a pain regimen patient given a work note disposition home with return precautions follow-up with PCP Last Vital Signs Date Time Temp Pulse Resp B/P (MAP) Pulse Ox O2 Delivery O2 Flow Rate FiO2 09/18/19 19:52 98.2 79 16 118/80 (93) 96 Room Air Disposition: HOME, SELF-CARE Condition: Stable Scripts Lidocaine Patch* (Lidoderm Patch*) 1 Each Adh..patch 1 PATCH TOPIC DAILY, #7 PATCH 0 Refills Patch(es) may remain in place for up to 12 hours in any 24-hour period. Prov: Marky Mays MD 09/18/19 Acetaminophen (Tylenol) 325 Mg Tablet 650 MG ORAL Q6H PRN for Prn Pain/Headache/Temp > 101, #30 TAB 0 Refills Prov: Marky Mays MD 09/18/19 Methocarbamol* (ROBAXIN-750*) 750 Mg Tablet 750 MG PO QID, #28 TAB 0 Refills Prov: Marky Mays MD 09/18/19 Ibuprofen* (MOTRIN*) 600 Mg Tablet 600 MG ORAL Q8H PRN for FOR PAIN, #30 TAB 0 Refills Prov: Marky Mays MD 09/18/19 Referrals: [facility]ERR[facility] (PCP) [facility] Departure Forms: Return to Work Return to Work Date: September 23, 2019 Patient Instructions: Rotator Cuff Injury Additional Instructions: The patient was provided with discharge instructions, notified to follow-up with a primary care doctor and or specialist in the next 24-48 hours, and to return to the ED if they have worsening of their symptoms. Please note that this report is being documented using [employer] technology. This can lead to erroneous entry secondary to incorrect interpretation by the dictating instrument. Marky Mays MD Sep 18, 2019 20:14
[2019-09-18 20:20] VITALS: BP 117/84
== END 2019-09-18 20:20 | disposition home or self-care (01) ==
LOC: EMR 20:03
DX: T14.8XXA Other injury of unspecified body region, initial encounter (principal); Y93.B2 Activity, push-ups, pull-ups, sit-ups; Y92.9 Unspecified place or not applicable; Z90.49 Acquired absence of other specified parts of digestive tract
CPT/HCPCS: 99282

== ENCOUNTER 2019-10-29 15:22 | Emergency (ER) | payer OTHER ==
[~2019-10-29] VITALS: Ht 154.9 cm; Wt 71.7 kg
[~2019-10-29 15:22] MED LIST changes: +IBUPROFEN600 M1 ORAL; +ROBAXIN-750750 MG PO; +TYLENOL325 MG ORAL
[2019-10-29] MEDS ORDERED: Ketorolac 30mg Inj IV ONE (15:45)
[2019-10-29 15:55] VITALS: BP 114/66
--- NOTE | 2019-10-29 15:55 | NUR ---
ED Nurse Note: Patient walked in to ER from home. per pt. she has been having pain on the RLQ radiating to the R lower back since . Patient AAO x4, VSS at this time,
--- NOTE | 2019-10-29 15:55 | Emergency Room Report ---
History of Present Illness General Chief Complaint: Abdominal Pain Source: Patient Present Illness HPI Patient is a 24-year-old female denies any significant past medical history who presents to the ER complaining of right lower quadrant pain that started 5 days ago. Patient states that it has not gotten any better or worse over the past 5 days but that it is just a constant pain. She denies any fever or chills. She complains of nausea but denies any vomiting. She denies any constipation or diarrhea. Patient complains of urinary frequency but denies any dysuria. Last menstrual period was approximately 3 weeks ago. She states that there is no chance that she can be . Allergies: Coded Allergies: No Known Allergies (Unverified , 07/23/18) COVID-19 Screening Contact w/high risk pt: No Recent Travel to affected area: No Experienced COVID-19 symptoms?: No COVID-19 Testing performed CONCERT PROMOTER: No Patient History Past Medical History: none Past Surgical History: noy Social History: Reports: alcohol use - social ; Denies: smoking, drug use Last Menstrual Period: 10/05/19 : 5 Nursing Documentation-PMH Hx Cardiac Problems: No - anemia Hx Gastrointestinal Problems: Yes - gall bladder removed 2017 Review of Systems All Other Systems: negative except mentioned in HPI Physical Exam Vital Signs Date Time Temp Pulse Resp B/P (MAP) Pulse Ox O2 Delivery O2 Flow Rate FiO2 10/29/19 15:38 98.2 79 16 114/66 (82) 96 Room Air Sp02 EP Interpretation: reviewed, normal General Appearance: no apparent distress, alert, GCS 15, non-toxic Head: normocephalic, atraumatic Eyes: bilateral eye normal inspection, bilateral eye PERRL ENT: hearing grossly normal, normal pharynx, no angioedema, normal voice Neck: full range of motion, supple/symm/no masses Respiratory: chest non-tender, lungs clear, normal breath sounds, speaking full sentences Cardiovascular #1: regular rate, rhythm, no edema Cardiovascular #2: 2+ carotid (R), 2+ carotid (L) Gastrointestinal: other - Right lower quadrant/suprapubic pain with no guarding or rebound, overweight Rectal: deferred Genitourinary: no CVA tenderness Musculoskeletal: back normal, normal range of motion, gait/station normal, non- tender Neurologic: alert, motor strength/tone normal, oriented x3, sensory intact, responsive, speech normal Psychiatric: judgement/insight normal, memory normal, mood/affect normal, no suicidal/homicidal ideation Skin: no rash Lymphatic: no adenopathy Medical Decision Making Diagnostic Impression: Primary Impression: Abdominal pain Additional Impression: UTI (urinary tract infection) ER Course Patient's labs demonstrate UTI. Patient given Macrobid. Patient CT and ultrasound demonstrate no acute abdominal or pelvic pathology. After discussing risks and benefits of further diagnostics, treatment plans, as well as indications for and risks of admission, the patient is agreeable to being discharged home. I have explained that their evaluation and treatment in the emergency department today is an important step towards them achieving better health but that their evaluation today is not intended to replace further evaluation and treatment by a physician in their local clinic. I have explained that while the current findings suggest no immediate life threatening emergency they will require further evaluation and treatment by a physician of their choice in their area. They understand that it will be necessary for them to review the final reports of their ED visit with their clinic physician. We have reviewed indications for return to the Emergency Department. I have explained that additional time may need to pass and/or additional testing as an outpatient may be necessary before a definitive diagnosis can be made. They tell me they are willing to follow up as instructed within the timeframe I recommend. They appear to understand what we discussed. Additionally they understand that if they are unable to be seen by an outpatient physician they are welcome, and in fact should, return to the Emergency Department for a repeat evaluation. The patient is stable at time of discharge. Laboratory Tests Test 10/29/19 16:54 White Blood Count 7.9 K/UL (4.8-10.8) Red Blood Count 4.84 M/UL (4.20-5.40) Hemoglobin 12.7 G/DL (12.0-16.0) Hematocrit 41.8 % (37.0-47.0) Mean Corpuscular Volume 86 FL (80-99) Mean Corpuscular Hemoglobin 26.3 PG (27.0-31.0) L Mean Corpuscular Hemoglobin Concent 30.5 G/DL (32.0-36.0) L Red Cell Distribution Width 14.1 % (11.6-14.8) Platelet Count 165 K/UL (150-450) Mean Platelet Volume 13.0 FL (6.5-10.1) H Neutrophils (%) (Auto) 65.2 % (45.0-75.0) Lymphocytes (%) (Auto) 26.6 % (20.0-45.0) Monocytes (%) (Auto) 6.4 % (1.0-10.0) Eosinophils (%) (Auto) 0.9 % (0.0-3.0) Basophils (%) (Auto) 0.9 % (0.0-2.0) Urine Color Pale yellow Urine Appearance Slightly cloudy Urine pH 6 (4.5-8.0) Urine Specific [place] 1.020 (1.005-1.035) Urine Protein Negative (NEGATIVE) Urine Glucose (UA) Negative (NEGATIVE) Urine Ketones Negative (NEGATIVE) Urine Blood 3+ (NEGATIVE) H Urine Nitrite Negative (NEGATIVE) Urine Bilirubin Negative (NEGATIVE) Urine Urobilinogen Normal MG/DL (0.0-1.0) Urine Leukocyte Esterase 3+ (NEGATIVE) H Urine RBC 5-10 /HPF (0 - 2) H Urine WBC 5-10 /HPF (0 - 2) H Urine Squamous Epithelial Cells Many /LPF (NONE/OCC) H Urine Bacteria Few /HPF (NONE) Urine HCG, Qualitative Negative (NEGATIVE) Sodium Level 142 MMOL/L (136-145) Potassium Level 3.9 MMOL/L (3.5-5.1) Chloride Level 105 MMOL/L (98-107) Carbon Dioxide Level 24 MMOL/L (21-32) Anion Gap 13 mmol/L (5-15) Blood Urea Nitrogen 12 mg/dL (7-18) Creatinine 0.8 MG/DL (0.55-1.30) Estimated Glomerular Filtration Rate > 60 mL/min (>60) Glucose Level 104 MG/DL (74-106) Calcium Level 8.9 MG/DL (8.5-10.1) Magnesium Level 2.2 MG/DL (1.8-2.4) Total Bilirubin 0.3 MG/DL (0.2-1.0) Aspartate Amino Transferase (AST) 13 U/L (15-37) L Alanine Aminotransferase (ALT) 20 U/L (12-78) Alkaline Phosphatase 75 U/L (46-116) Total Protein 7.6 G/DL (6.4-8.2) Albumin 3.9 G/DL (3.4-5.0) Globulin 3.7 g/dL Albumin/Globulin Ratio 1.1 (1.0-2.7) Lipase 127 U/L (73-393) Urine Opiates Screen Negative (NEGATIVE) Urine Barbiturates Screen Negative (NEGATIVE) Phencyclidine (PCP) Screen Negative (NEGATIVE) Urine Amphetamines Screen Negative (NEGATIVE) Urine Benzodiazepines Screen Negative (NEGATIVE) Urine Cocaine Screen Negative (NEGATIVE) Urine Marijuana (THC) Screen Negative (NEGATIVE) Last Vital Signs Date Time Temp Pulse Resp B/P (MAP) Pulse Ox O2 Delivery O2 Flow Rate FiO2 10/29/19 15:38 98.2 79 16 114/66 (82) 96 Room Air Disposition: HOME, SELF-CARE Condition: Stable Scripts Ibuprofen* (MOTRIN*) 600 Mg Tablet 600 MG ORAL FOUR TIMES A DAY, #30 TAB 0 Refills Prov: Sowmya Hein M.D. 10/29/19 Nitrofurantoin Monohyd/M-Cryst* (MACROBID 100 MG*) 100 Mg Capsule 100 MG ORAL EVERY 12 HOURS for 7 Days, #14 CAP Prov: Sowmya Hein M.D. 10/29/19 Additional Instructions: The patient was provided with discharge instructions, notified to follow-up with a primary care doctor and or specialist in the next 24-48 hours, and to return to the ED if they have worsening of their symptoms. Please note that this report is being documented using [employer] technology. This can lead to erroneous entry secondary to incorrect interpretation by the dictating instrument. Sowmya Hein M.D. Oct 29, 2019 15:55
--- NOTE | 2019-10-29 16:50 | NUR ---
ED Nurse Note: blood and urine specimen collected sent down
--- NOTE | 2019-10-29 17:03 | Diagnostic Imaging Report ---
EXAM: US Pelvis Transabdominal, Complete CLINICAL HISTORY: Pelvic pain. TECHNIQUE: Real-time complete transabdominal pelvic ultrasound with image documentation. COMPARISON: 07/18/2019. FINDINGS: Uterus/cervix: The uterus measures 8.5 x 5.2 x 3.7 cm. Endometrial stripe measures 0.8 cm is. Nabothian cyst. Cervix measures 3.5 cm and is closed. No myometrial mass. Right ovary: The right ovary measures 3.3 x 2.9 x 2.1 cm. Follicles are noted within the ovaries. Flow is noted to the ovaries. Normal blood flow. Left ovary: The left ovary measures 2.8 x 2.6 x 1.6 cm. Free fluid: No free fluid. Bladder: Unremarkable as visualized. Wall is normal thickness for degree of distention. IMPRESSION: 1. Ovaries are unremarkable. 2. Flow to the ovaries noted. 3. Nabothian cyst. 4. No free fluid.
[2019-10-29 17:25] LABS: BASOPHILS % (AUTO) 0.9 % (0.0-2.0); EOSINOPHILS % (AUTO) 0.9 % (0.0-3.0); HEMATOCRIT 41.8 % (37.0-47.0); HEMOGLOBIN 12.7 G/DL (12.0-16.0); LYMPHOCYTES % (AUTO) 26.6 % (20.0-45.0); MEAN CORPUSCULAR VOLUME 86 FL (80-99); MONOCYTES % (AUTO) 6.4 % (1.0-10.0); NEUTROPHILS % (AUTO) 65.2 % (45.0-75.0); PLATELET COUNT 165 K/UL (150-450); RED BLOOD COUNT 4.84 M/UL (4.20-5.40); RED CELL DISTRIBUTION WIDTH 14.1 % (11.6-14.8); WHITE BLOOD COUNT 7.9 K/UL (4.8-10.8)
[2019-10-29 17:37] LABS: ANION GAP 13 mmol/L (5-15); BLOOD UREA NITROGEN 12 mg/dL (7-18); CALCIUM 8.9 MG/DL (8.5-10.1); CARBON DIOXIDE 24 MMOL/L (21-32); CHLORIDE 105 MMOL/L (98-107); CREATININE 0.8 MG/DL (0.55-1.30); POTASSIUM 3.9 MMOL/L (3.5-5.1); SODIUM 142 MMOL/L (136-145)
[2019-10-29 17:52] LABS: ALANINE AMINOTRANSFERASE 20 U/L (12-78); ALBUMIN 3.9 G/DL (3.4-5.0); ALBUMIN/GLOBULIN RATIO 1.1 (1.0-2.7); ALKALINE PHOSPHATASE 75 U/L (46-116); ASPARTATE AMINO TRANSFERASE 13 U/L (15-37); BILIRUBIN,TOTAL 0.3 MG/DL (0.2-1.0)
--- NOTE | 2019-10-29 17:53 | Diagnostic Imaging Report ---
Indication: Right lower quadrant pain Technique: Spiral acquisitions obtained through the abdomen and pelvis. No oral contrast utilized, per emergency room physician request No IV contrast utilized, per referring physician request.. Multiplanar reconstructions were generated. Total dose length product 347 mGycm. CTDIvol(s) 6 mGy. Dose reduction achieved using automated exposure control Comparison: 07/18/2019 contrast study Findings: Lack of enteric contrast limits assessment of the GI tract. The appendix is normal. There is equivocal colonic diverticulosis. No evidence of acute diverticulitis. No small bowel distention. There is a tiny fat-containing umbilical hernia. Lack of IV contrast limits assessment of the solid organs. The gallbladder has been removed. The liver, bile ducts, pancreas, spleen, adrenals, left kidney are unremarkable. Right kidney demonstrates a punctate 2 mm interpolar region calculus and possibly some slight medullary calcinosis. Previously demonstrated left renal cyst is not apparent on current noncontrast study. No ureteral calculi, hydronephrosis, or hydroureter. No retroperitoneal or mesenteric mass or adenopathy. No pelvic mass or adenopathy. The included lung bases are clear except for some posterior dependent atelectatic changes. The bones are unremarkable. Impression: Limited assessment of the GI tract, due to lack of enteric contrast administration No definite acute abnormality. Equivocal colonic diverticulosis. No evidence of diverticulitis. Normal appendix Punctate nonobstructive right renal interpolar region calculus Incidental findings as noted, including small fat-containing umbilical hernia, prior cholecystectomy The CT scanner at [facility] is accredited by the [employer] and the scans are performed using protocols designed to limit radiation exposure to as low as reasonably achievable to attain images of sufficient resolution adequate for diagnostic evaluation.
[2019-10-29 17:57] LABS: APPEARANCE,URINE SLIGHTLY CLOUDY; BILIRUBIN, URINE NEGATIVE (NEGATIVE); COLOR,URINE PALE YELLOW; GLUCOSE, URINE (UA) NEGATIVE (NEGATIVE); KETONES,URINE NEGATIVE (NEGATIVE); LEUKOCYTE ESTERASE ,URINE 3+ (NEGATIVE); NITRITE,URINE NEGATIVE (NEGATIVE); PH,URINE 6 (4.5-8.0); PROTEIN,URINE NEGATIVE (NEGATIVE); UROBILINOGEN,URINE NORMAL MG/DL (0.0-1.0)
[2019-10-29] MEDS ORDERED: NITROFURANTOIN100 M2 ORAL (18:22)
[2019-10-29] MEDS ORDERED: IBUPROFEN600 M1 ORAL (18:22)
[2019-10-29 18:33] VITALS: BP 114/66
--- NOTE | 2019-10-29 18:48 | NUR ---
ER DISCHARGE NOTE: Patient is cleared to be discharged per ERMD, pt is aox4, on room air, with stable vital signs. pt was given dc and prescription instructions, pt was able to verbalize understanding, pt id band and iv site removed without complications. pt is able to ambulate with steady gait. pt took all belongings.
--- NOTE | 2019-11-04 15:54 | Diagnostic Imaging Report ---
Indication: Pain Technique: Transabdominal and endovaginal ultrasound with duplex. Comparison: None. Findings: The uterus is normal in size. Endometrial thickness is 8 mm. These are normal and contain follicular cysts. No pelvic fluid. Impression: Normal pelvic ultrasound.
== END 2019-10-29 18:33 | disposition home or self-care (01) ==
LOC: EMR 15:45
DX: R10.31 Right lower quadrant pain (principal); N39.0 Urinary tract infection, site not specified; R11.0 Nausea; Z90.49 Acquired absence of other specified parts of digestive tract
CPT/HCPCS: 36415; 74176; 76830; 76856; 80053; 80307; 81003; 81025; 83690; 83735; 85025; 96361; 96374; 96375; J1885; J2405; J7030; Z7502; 99284

== ENCOUNTER 2020-04-26 11:01 | Emergency (ER) | payer OTHER ==
[~2020-04-26] VITALS: Ht 154.9 cm; Wt 74.8 kg
--- NOTE | 2020-04-26 11:11 | NUR ---
ED Nurse Note: Patient walked in to ER due to lac on right side of vagina while shaving 2 days ago. Patient reports not up to date on tdap. No actively bleeding noted. Pastient AAO x4, VSS at this time.
[2020-04-26 11:12] VITALS: BP 127/81
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
[2020-04-26] MEDS ORDERED: BACITRACIN15 GM TOPIC (11:40)
[2020-04-26] MEDS ORDERED: IBUPROFEN600 M1 ORAL (11:40)
[2020-04-26] MEDS ORDERED: CEPHALEXIN500 MG ORAL (11:40)
[2020-04-26 11:45] VITALS: BP 127/81
[2020-04-26] MEDS ORDERED: Tetanus/Diptheria/Pertussis IM ONE (11:45)
[2020-04-26] MEDS ORDERED: Cephalexin 500mg cap ORAL ONE (11:45)
[2020-04-26] MEDS ORDERED: Bacitracin Oint UD TOPIC ONE (11:45)
--- NOTE | 2020-04-26 11:45 | NUR ---
ED Nurse Note: Pt cleared by health care Provider for discharge. DC instructions/prescription was given and explained to pt and verbalized understanding of teachings. All medical deviecs such as ID band removed. Pt is AAO x4, ambulatory and left with all personal belongings.
--- NOTE | 2020-04-26 14:37 | NUR ---
Note shanonone in EDM - 04/26/20 at 1437 by [email or web address] ED Nurse Note: Pt cleared by health care Provider for discharge. DC instructions/prescription was given and explained to pt and verbalized understanding of teachings. All medical deviecs such as ID band removed. Pt is AAO x4, ambulatory and left with all personal belongings.
== END 2020-04-26 11:45 | disposition home or self-care (01) ==
LOC: EMR 11:25
DX: S31.41XA Laceration without foreign body of vagina and vulva, initial encounter (principal); Z90.49 Acquired absence of other specified parts of digestive tract; W25.XXXA Contact with sharp glass, initial encounter; Y92.9 Unspecified place or not applicable; Z23 Encounter for immunization
CPT/HCPCS: 90471; 90715; Z7502; 99282

== ENCOUNTER 2020-08-03 16:11 | Emergency (ER) | payer OTHER ==
[~2020-08-03] VITALS: Ht 154.9 cm; Wt 72.6 kg
[~2020-08-03 16:11] MED LIST changes: +BACITRACIN15 GM TOPIC
[2020-08-03] MEDS ORDERED: Morphine Sulfate 4mg/ml Inj (IV USE ONLY) IVP ONE (17:00)
[2020-08-03 17:09] LABS: APPEARANCE,URINE CLEAR; BILIRUBIN, URINE NEGATIVE (NEGATIVE); COLOR,URINE PALE YELLOW; GLUCOSE, URINE (UA) NEGATIVE (NEGATIVE); KETONES,URINE NEGATIVE (NEGATIVE); LEUKOCYTE ESTERASE ,URINE NEGATIVE (NEGATIVE); NITRITE,URINE NEGATIVE (NEGATIVE); PH,URINE 8 (4.5-8.0); PROTEIN,URINE NEGATIVE (NEGATIVE); UROBILINOGEN,URINE NORMAL MG/DL (0.0-1.0)
[2020-08-03 17:13] LABS: ANION GAP 10 mmol/L (5-15); BASOPHILS % (AUTO) 0.5 % (0.0-2.0); BLOOD UREA NITROGEN 11 mg/dL (7-18); CALCIUM 9.3 MG/DL (8.5-10.1); CARBON DIOXIDE 26 MMOL/L (21-32); CHLORIDE 104 MMOL/L (98-107); CREATININE 0.8 MG/DL (0.55-1.30); EOSINOPHILS % (AUTO) 0.7 % (0.0-3.0); HEMOGLOBIN 12.6 G/DL (12.0-16.0); LYMPHOCYTES % (AUTO) 32.8 % (20.0-45.0); MEAN CORPUSCULAR VOLUME 82 FL (80-99); MONOCYTES % (AUTO) 5.2 % (1.0-10.0); NEUTROPHILS % (AUTO) 60.8 % (45.0-75.0); PLATELET COUNT 204 K/UL (150-450); POTASSIUM 3.4 MMOL/L (3.5-5.1); RED BLOOD COUNT 5.48 M/UL (4.20-5.40); RED CELL DISTRIBUTION WIDTH 14.4 % (11.6-14.8); SODIUM 140 MMOL/L (136-145); WHITE BLOOD COUNT 8.4 K/UL (4.8-10.8)
[2020-08-03 17:18] LABS: ALANINE AMINOTRANSFERASE 20 U/L (12-78); ALBUMIN 4.2 G/DL (3.4-5.0); ALBUMIN/GLOBULIN RATIO 1.1 (1.0-2.7); ALKALINE PHOSPHATASE 73 U/L (46-116); ASPARTATE AMINO TRANSFERASE 15 U/L (15-37); BILIRUBIN,TOTAL 0.5 MG/DL (0.2-1.0)
--- NOTE | 2020-08-03 17:19 | Emergency Room Report ---
History of Present Illness General Chief Complaint: Abdominal Pain Present Illness HPI 24 YO female presents to the ED c/o 12/29 in severity RUQ pain. Pt. reports having palpable ST bulges that have been presents since her gall bladder surgery in 2017. Pt. reports nausea but denies vomiting. She denies fevers or chills. Denies constipation,diarrhea, hematemesis, hematochezia or black tarry stools. She reports she had her last menstrual cycle was 07/07/2020. She denies suspicion of . She denies hx of GERD. She denies warmth or erythema of the overlying Soft tissues. She denies having complications with her previous surgeries. She reports her PCP is Dr. Malone. She denies hx of kidney stones. She denies pelvic pain or vaginal DC. Denies bleeding. She denies back pain. Allergies: Coded Allergies: No Known Allergies (Unverified , 07/23/18) COVID-19 Screening Contact w/high risk pt: No Recent Travel to affected area: No Experienced COVID-19 symptoms?: No COVID-19 Testing performed [employer]: Yes COVID-19 Screening: Negative COVID-19 COVID-19 Testing Source: clinic Patient History Past Medical History: see triage record Past Surgical History: none Pertinent Family History: none Last Menstrual Period: 2-16 Now: No Reviewed Nursing Documentation: PMH: Agreed; PSxH: Agreed Nursing Documentation-PMH Hx Cardiac Problems: No - anemia Hx Gastrointestinal Problems: Yes - gall bladder removed 2016 Review of Systems All Other Systems: negative except mentioned in HPI Physical Exam Vital Signs Date Time Temp Pulse Resp B/P (MAP) Pulse Ox O2 Delivery O2 Flow Rate FiO2 08/03/20 16:25 98.6 73 18 111/84 (93) 99 Room Air Sp02 EP Interpretation: reviewed, normal General Appearance: no apparent distress, alert, GCS 15, non-toxic Head: normocephalic, atraumatic Eyes: bilateral eye normal inspection, bilateral eye PERRL ENT: hearing grossly normal, normal voice Neck: full range of motion Respiratory: chest non-tender, lungs clear, normal breath sounds, speaking full sentences Cardiovascular #1: regular rate, rhythm, no edema Gastrointestinal: normal bowel sounds, soft, tenderness - RUQ. Genitourinary: normal inspection, no CVA tenderness Musculoskeletal: back normal, normal range of motion, gait/station normal, non- tender Neurologic: alert, motor strength/tone normal, oriented x3, sensory intact, responsive, speech normal Psychiatric: judgement/insight normal Lymphatic: no adenopathy Medical Decision Making PA Attestation Dr. Angulo is my supervising Physician whom patient management has been discussed with. Diagnostic Impression: Primary Impression: Abdominal pain Qualified Codes: R10.11 - Right upper quadrant pain ER Course 24 YO female presents to the ED c/o 12/29 in severity RUQ pain. Pt. reports having palpable ST bulges that have been presents since her gall bladder surgery in 2017. Pt. reports nausea but denies vomiting. She denies fevers or chills. Denies constipation,diarrhea, hematemesis, hematochezia or black tarry stools. She reports she had her last menstrual cycle was 07/07/2020. She denies suspicion of . She denies hx of GERD. She denies warmth or erythema of the overlying Soft tissues. She denies having complications with her previous surgeries. She reports her PCP is Dr. Malone. She denies hx of kidney stones. She denies pelvic pain or vaginal DC. Denies bleeding. She denies back pain. Ddx considered but are not limited to Diverticulitis, acute appendicitis, diarrhea,UC, PUD, GE, pancreatitis, gallstone, renal calculi, ovarian torsion, ectopic , UTI, PID tubo-ovarian abscess. Vital signs: are WNL, pt. is afebrile. H&PE are most consistent with non toxic patient in NAD, no evidence to suggest acute abdomen on exam. suspicion for surgical adhesions causing pain, Abdomen is soft and non-distended. ORDERS: -CBC, CMP, LIPASE: are all unremarkable -UA:Unremarkable-most indicative of contamination: presence of equal amounts of bacteria and squamous cells, no elevation in inflammatory markers, nitrite negative. -URINE HCG: Negative ED INTERVENTIONS: - 4mg Morphine IV -Zofran 4mg IV - Pepcid and Toradol were ordered however pt. declined. -I do not identify an emergent condition at this time. With current presentation, pt. is stable for close outpatient follow up and conservative treatment. D/w pt. to return promptly to ED with worsening or new symptoms.- Pt. verbalizes' understanding and agreement with proposed treatment plan. DISCHARGE: At this time pt. is stable for d/c to home. Will provide printed patient care instructions, and any necessary prescriptions. Care plan and follow up instructions have been discussed with the patient prior to discharge. Labs Test 08/03/20 16:37 White Blood Count 8.4 K/UL (4.8-10.8) Red Blood Count 5.48 M/UL (4.20-5.40) Hemoglobin 12.6 G/DL (12.0-16.0) Hematocrit 45.0 % (37.0-47.0) Mean Corpuscular Volume 82 FL (80-99) Mean Corpuscular Hemoglobin 23.1 PG (27.0-31.0) Mean Corpuscular Hemoglobin Concent 28.1 G/DL (32.0-36.0) Red Cell Distribution Width 14.4 % (11.6-14.8) Platelet Count 204 K/UL (150-450) Mean Platelet Volume 11.2 FL (6.5-10.1) Neutrophils (%) (Auto) 60.8 % (45.0-75.0) Lymphocytes (%) (Auto) 32.8 % (20.0-45.0) Monocytes (%) (Auto) 5.2 % (1.0-10.0) Eosinophils (%) (Auto) 0.7 % (0.0-3.0) Basophils (%) (Auto) 0.5 % (0.0-2.0) Urine Color Pale yellow Urine Appearance Clear Urine pH 8 (4.5-8.0) Urine Specific [place] 1.010 (1.005-1.035) Urine Protein Negative (NEGATIVE) Urine Glucose (UA) Negative (NEGATIVE) Urine Ketones Negative (NEGATIVE) Urine Blood 1+ (NEGATIVE) Urine Nitrite Negative (NEGATIVE) Urine Bilirubin Negative (NEGATIVE) Urine Urobilinogen Normal MG/DL (0.0-1.0) Urine Leukocyte Esterase Negative (NEGATIVE) Urine RBC 0-2 /HPF (0 - 2) Urine WBC 0-2 /HPF (0 - 2) Urine Squamous Epithelial Cells Occasional /LPF Urine Bacteria Occasional /HPF (NONE) Urine HCG, Qualitative Negative (NEGATIVE) Sodium Level 140 MMOL/L (136-145) Potassium Level 3.4 MMOL/L (3.5-5.1) Chloride Level 104 MMOL/L (98-107) Carbon Dioxide Level 26 MMOL/L (21-32) Anion Gap 10 mmol/L (5-15) Blood Urea Nitrogen 11 mg/dL (7-18) Creatinine 0.8 MG/DL (0.55-1.30) Estimat Glomerular Filtration Rate > 60 mL/min (>60) Glucose Level 88 MG/DL (74-106) Calcium Level 9.3 MG/DL (8.5-10.1) Total Bilirubin 0.5 MG/DL (0.2-1.0) Aspartate Amino Transf (AST/SGOT) 15 U/L (15-37) Alanine Aminotransferase (ALT/SGPT) 20 U/L (12-78) Alkaline Phosphatase 73 U/L (46-116) Total Protein 7.9 G/DL (6.4-8.2) Albumin 4.2 G/DL (3.4-5.0) Globulin 3.7 g/dL Albumin/Globulin Ratio 1.1 (1.0-2.7) Lipase 125 U/L (73-393) CT/MRI/US Diagnostic Results CT/MRI/US Diagnostic Results #1: Imaging Test Ordered: CT abdomen and pelvis w. IV contrast. Impression " IMPRESSION: 1. No acute abnormality definitively identified to account for patient presentation. 2. Normal appendix. 3. Cholecystectomy." --Per official radiology report- Please see report for specific details. CT/MRI/US Diagnostic Results #2: Imaging Test Ordered: Pelvic US Impression " IMPRESSION: 1. Patient is not . 2. No acute abnormality definitively identified to account for patient presentation. 3. Unremarkable study." --Per official radiology report- Please see report for specific details. Last Vital Signs Date Time Temp Pulse Resp B/P (MAP) Pulse Ox O2 Delivery O2 Flow Rate FiO2 08/03/20 16:25 98.6 73 18 111/84 (93) 99 Room Air Status: improved Disposition: HOME, SELF-CARE Condition: Stable Scripts Famotidine* (Pepcid 20mg tablet*) 20 Mg Tablet 20 MG ORAL TWICE A DAY for Gerd for 10 Days, #20 TAB 0 Refills Prov: Vijaya Palumbo 08/03/20 Ibuprofen* (MOTRIN*) 600 Mg Tablet 600 MG ORAL THREE TIMES A DAY, #20 TAB Prov: Vijaya Palumbo 08/03/20 Referrals: [facility],REFERRING (PCP) [facility] Patient Instructions: Abdominal Pain, Adult Additional Instructions: Take medications as directed. Follow up with a Primary Care Provider in 3-5 days, even if your symptoms have resolved. --Please review list of primary care clinics, if you do not already have a primary care provider Return sooner to ED if new symptoms occur, or current symptoms become worse. - Please note that this Emergency Department Report was dictated using [employer] briefer technology software, occasionally this can lead to erroneous entry secondary to interpretation by the dictation equipment. Vijaya Palumbo Aug 03, 2020 17:19
--- NOTE | 2020-08-03 17:34 | NUR ---
Pt currently in CT. Pt was given IV morphine for her abd pain 12/29. Will reassess patient when she returns from CT.
--- NOTE | 2020-08-03 17:55 | Diagnostic Imaging Report ---
EXAM: CT Abdomen and Pelvis With Intravenous Contrast CLINICAL HISTORY: PAIN TECHNIQUE: Axial computed tomography images of the abdomen and pelvis with intravenous contrast. CTDI is 6.5 mGy and DLP is 337.8 mGy-cm. One or more of the following dose reduction techniques were used: automated exposure control, adjustment of the mA and/or kV according to patient size, use of iterative reconstruction technique. Coronal and sagittal reformatted images were created and reviewed. COMPARISON: 10/29/2019 FINDINGS: Lung bases: Unremarkable. No mass. No consolidation. ABDOMEN: Liver: Unremarkable. No mass. Gallbladder and bile ducts: Cholecystectomy. No ductal dilation. Pancreas: Unremarkable. No mass. No ductal dilation. Spleen: Unremarkable. No splenomegaly. Adrenals: Unremarkable. No mass. Kidneys and ureters: Benign left renal 1 cm cyst, no follow-up. Otherwise unremarkable kidneys. No hydronephrosis. Stomach and bowel: Unremarkable. No obstruction. No mucosal thickening. PELVIS: Appendix: Normal appendix. Bladder: Unremarkable. No mass. Reproductive: Unremarkable as visualized. ABDOMEN and PELVIS: Intraperitoneal space: Unremarkable. No free air. No significant fluid collection. Bones/joints: No acute fracture. No dislocation. Soft tissues: Unremarkable. Vasculature: Unremarkable. No abdominal aortic aneurysm. Lymph nodes: Unremarkable. No enlarged lymph nodes. IMPRESSION: 1. No acute abnormality definitively identified to account for patient presentation. 2. Normal appendix. 3. Cholecystectomy.
[2020-08-03] MEDS ORDERED: IBUPROFEN600 M1 ORAL (18:12)
[2020-08-03] MEDS ORDERED: FAMOTIDINE20 MG ORAL (18:13)
[2020-08-03] MEDS ORDERED: Ketorolac 30mg Inj IV ONE (18:15)
--- NOTE | 2020-08-03 19:10 | NUR ---
Pt refusing any medication at this time. Pt reports abd pain at 05/31. Pt states, "I feel like I'm tripping out." in reference to her recent US imaging. Pt is anxious that the radiologist may have observed an abnormal finding. Currently the patient does not have any facial grimace, no signs of guarding or pain. Patient is resting in bed asking if she is ready for discharge yet. Awaiting radiologist report of US findings.
--- NOTE | 2020-08-03 19:34 | Diagnostic Imaging Report ---
EXAM: US Pelvis Transabdominal and Transvaginal, Complete and US Duplex Arterial/Venous of the Pelvis, Complete CLINICAL HISTORY: PAIN TECHNIQUE: Real-time complete transabdominal and transvaginal pelvic ultrasound with image documentation. Transvaginal imaging was used for better evaluation of the endometrium and adnexa. Real-time duplex ultrasound scan of the arterial and venous flow of the pelvis with color Doppler flow and spectral waveform analysis. COMPARISON: Same-day CT abdomen and pelvis FINDINGS: Uterus/cervix: Uterus 7 x 4 x 5 cm Endometrium 1.6 cm. No myometrial mass. Right ovary: Right ovary 4 cm No torsion. Left ovary: Left ovary 3 cm No torsion. Free fluid: No free fluid. Bladder: Unremarkable as visualized. Wall is normal thickness for degree of distention. Other findings: Patient is not . IMPRESSION: 1. Patient is not . 2. No acute abnormality definitively identified to account for patient presentation. 3. Unremarkable study.
[2020-08-03 19:38] VITALS: BP 108/53
== END 2020-08-03 18:20 | disposition home or self-care (01) ==
LOC: EMR 16:42
DX: R10.11 Right upper quadrant pain (principal); Z90.49 Acquired absence of other specified parts of digestive tract
CPT/HCPCS: 36415; 74177; 76830; 76856; 80053; 81003; 81025; 83690; 85025; 96374; 96375; J1885; J2270; J2405; Q9965; Z7502; 99284